=== PATIENT | female | born 1995 | race Caucasian/White ===

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

== ENCOUNTER 2017-08-31 13:47 | Emergency (ER) | payer BC, OTHER, SELFPAY | END 2017-08-31 15:14 | disposition home or self-care (01) | LOC: M ED 13:47 | DX: L02.411 Cutaneous abscess of right axilla (principal); A49.02 Methicillin resistant Staphylococcus aureus infection, unspecified site; A69.20 Lyme disease, unspecified; F17.210 Nicotine dependence, cigarettes, uncomplicated | CPT/HCPCS: 99283 ==

== ENCOUNTER → 2017-11-16 | Outpatient (CLI) | payer BC ==
[2017-11-16 17:24] LABS: PROLACTIN 25.1 NG/ML
[2017-11-16 17:47] LABS: THYROID STIMULATING HORMONE 0.637 uIU/ML (0.463-3.98)
[2017-11-16 17:47] LABS: FREE T4 1.03 NG/DL (0.78-1.33)
[2017-11-18 14:17] LABS: TESTOSTERONE FREE (DIRECT) 3.8 pg/mL (0.0-4.2)
== END ==
LOC: M WUC 11:16
DX: N92.6 Irregular menstruation, unspecified (principal); L68.0 Hirsutism
CPT/HCPCS: 84146

== ENCOUNTER → 2017-12-01 | Outpatient (REF) | payer BC | LOC: M SFHCCAPE 13:55 | DX: J02.9 Acute pharyngitis, unspecified (principal) ==

== ENCOUNTER → 2018-01-12 | Outpatient (REF) | payer BC ==
[2018-01-12 13:13] LABS: BASO # 0.1 10^3/uL (0.0-0.2); BASO % 0.7 % (0.0-1.0); EOS # 0.1 10^3/uL (0.0-0.50); EOS % 1.5 % (0.0-3.0); HEMATOCRIT 41.3 % (36.0-47.0); HEMOGLOBIN 13.4 g/dl (12.0-15.5); IMMATURE GRANULOCYTE % 0.3 % (0-3.0); LYMPH # 2.7 10^3/uL (1.5-6.5); MEAN CORPUSCULAR HEMOGLOBIN 29.7 pg (27.0-33.0); MEAN CORPUSCULAR HGB CONC 32.4 g/dl (32.0-36.5); MEAN CORPUSCULAR VOLUME 91.6 fl (80.0-96.0); MONO # 0.7 10^3/uL (0.0-0.8); MONO % 7.9 % (0.0-5.0); NEUTROPHILS # 5.6 10^3/uL (1.8-7.7); NEUTROPHILS % 60.6 % (36.0-66.0); PLATELET COUNT, AUTOMATED 302 10^3/uL (150-450); RED BLOOD COUNT 4.51 10^6/uL (4.00-5.40); RED CELL DISTRIBUTION WIDTH 12.8 % (11.5-14.5); WHITE BLOOD COUNT 9.2 10^3/uL (4.0-10.0)
[2018-01-12 14:09] LABS: ERYTHROCYTE SEDIMENTATION RATE 20 mm/hr (0-20)
[2018-01-12 14:13] LABS: ALBUMIN 4.3 GM/DL (3.2-5.2); ALBUMIN/GLOBULIN RATIO 1.48 (1.00-1.93); ALKALINE PHOSPHATASE 76 U/L (45-117); ALT/SGPT 39 U/L (12-78); ANION GAP 10 MEQ/L (8-16); AST/SGOT 19 U/L (7-37); BILIRUBIN,TOTAL 0.6 MG/DL (0.2-1.0); BLOOD UREA NITROGEN 10 MG/DL (7-18); CALCIUM LEVEL 9.6 MG/DL (8.5-10.1); CARBON DIOXIDE LEVEL 26 MEQ/L (21-32); CHLORIDE LEVEL 103 MEQ/L (98-107); CREATININE FOR GFR 0.53 MG/DL (0.55-1.30); GLUCOSE, FASTING 64 MG/DL (70-100); IMMUNOGLOBULIN G 1060 MG/DL (681-1648); IMMUNOGLOBULIN M 97 MG/DL (40-230); POTASSIUM SERUM 4.4 MEQ/L (3.5-5.1); SODIUM LEVEL 139 MEQ/L (136-145); TOTAL PROTEIN 7.2 GM/DL (6.4-8.2)
[2018-01-13 10:45] LABS: HIV 1&2 SCREEN CENTAUR NEGATIVE (NEGATIVE)
== END ==
LOC: M SFHCPLAZ 10:49
DX: B99.9 Unspecified infectious disease (principal); Z22.322 Carrier or suspected carrier of Methicillin resistant Staphylococcus aureus
CPT/HCPCS: 80053

== ENCOUNTER → 2018-02-09 | Outpatient (REF) | payer BC | LOC: M SFHCPLAZ 15:23 | DX: Z22.321 Carrier or suspected carrier of Methicillin susceptible Staphylococcus aureus (principal) ==

== ENCOUNTER → 2018-03-24 | Outpatient (REF) | payer BC ==
[2018-03-25 17:04] LABS: AMORPHOUS SEDIMENT MODERATE (NEGATIVE); APPEARANCE, URINE CLOUDY (CLEAR); BACTERIA, URINE AUTO NEGATIVE (NEGATIVE); BILIRUBIN, URINE AUTO NEGATIVE (NEGATIVE); BLOOD, URINE BLOOD 1+ (NEGATIVE); COLOR, URINE YELLOW (YELLOW); GLUCOSE, URINE (UA) AUTO NEGATIVE (NEGATIVE); KETONE, URINE AUTO NEGATIVE (NEGATIVE); LEUKOCYTE ESTERASE, URINE AUTO NEGATIVE (NEGATIVE); MUCUS, URINE SMALL (NEGATIVE); NITRITE, URINE AUTO NEGATIVE (NEGATIVE); PROTEIN, URINE AUTO NEGATIVE (NEGATIVE); RBC, URINE AUTO 0 /HPF (0-3); SPECIFIC GRAVITY URINE AUTO 1.019 (1.002-1.035); SQUAMOUS EPITHELIAL CELL UR AU 4 /HPF (0-6); UROBILINOGEN, URINE AUTO 0.2 mg/dL (0.0-2.0); WBC, URINE AUTO 2 /HPF (0-3)
== END ==
LOC: M SFHCCAPE 16:11
DX: R11.0 Nausea (principal); R19.7 Diarrhea, unspecified; R53.83 Other fatigue
CPT/HCPCS: 81001

== ENCOUNTER → 2018-03-25 | Outpatient (REF) | payer BC ==
[2018-03-25 17:14] LABS: BASO % 0.5 % (0.0-1.0); EOS # 0.1 10^3/uL (0.0-0.50); EOS % 1.6 % (0.0-3.0); HEMATOCRIT 40.6 % (36.0-47.0); HEMOGLOBIN 13.4 g/dl (12.0-15.5); IMMATURE GRANULOCYTE % 0.2 % (0-3.0); LYMPH # 2.6 10^3/uL (1.5-6.5); LYMPH % 30.1 % (24.0-44.0); MEAN CORPUSCULAR HEMOGLOBIN 30.5 pg (27.0-33.0); MEAN CORPUSCULAR VOLUME 92.3 fl (80.0-96.0); MONO # 0.5 10^3/uL (0.0-0.8); MONO % 6.1 % (0.0-5.0); NEUTROPHILS # 5.3 10^3/uL (1.8-7.7); NEUTROPHILS % 61.5 % (36.0-66.0); PLATELET COUNT, AUTOMATED 316 10^3/uL (150-450); RED CELL DISTRIBUTION WIDTH 12.7 % (11.5-14.5); WHITE BLOOD COUNT 8.7 10^3/uL (4.0-10.0)
[2018-03-25 17:22] LABS: ALBUMIN 4.4 GM/DL (3.2-5.2); ALBUMIN/GLOBULIN RATIO 1.42 (1.00-1.93); ALKALINE PHOSPHATASE 74 U/L (45-117); ALT/SGPT 40 U/L (12-78); ANION GAP 6 MEQ/L (8-16); AST/SGOT 17 U/L (7-37); BILIRUBIN,TOTAL 0.7 MG/DL (0.2-1.0); BLOOD UREA NITROGEN 14 MG/DL (7-18); CALCIUM LEVEL 9.4 MG/DL (8.5-10.1); CARBON DIOXIDE LEVEL 27 MEQ/L (21-32); CHLORIDE LEVEL 105 MEQ/L (98-107); CREATININE FOR GFR 0.68 MG/DL (0.55-1.30); GLUCOSE, FASTING 100 MG/DL (70-100); LIPASE 132 U/L (73-393); POTASSIUM SERUM 4.2 MEQ/L (3.5-5.1); SODIUM LEVEL 138 MEQ/L (136-145); TOTAL PROTEIN 7.5 GM/DL (6.4-8.2)
[2018-03-25 17:23] LABS: VITAMIN B12 LEVEL 627 PG/ML (247-911)
[2018-03-25 17:31] LABS: TOTAL 25(OH) VITAMIN D 21.2 NG/ML (30.0-100.0)
[2018-03-25 19:17] LABS: CONTROL LINE HCG INT CTR LINE PRESENT; CONTROL LINE MONO RF C INT CTR LINE PRESENT; HCG, SERUM QUALITATIVE NEGATIVE (NEGATIVE); MONO REFLEX EBV COMP NEGATIVE (NEGATIVE)
[2018-03-28 00:06] LABS: EBV VIRAL CAPSID AG IgM <36.0 U/mL (0.0-35.9); Lyme Disease IgG/IgM Antibodie <0.91 ISR (0.00-0.90); Lyme Disease IgM Ab Quantitati <0.80 index (0.00-0.79)
== END ==
LOC: M SFHCCAPE 10:50
DX: R11.0 Nausea (principal); R53.83 Other fatigue; R19.7 Diarrhea, unspecified
CPT/HCPCS: 83690

== ENCOUNTER → 2018-03-29 | Outpatient (CLI) | payer BC | LOC: M RAD 13:32 | DX: R19.7 Diarrhea, unspecified (principal); R11.2 Nausea with vomiting, unspecified | CPT/HCPCS: 76705 ==

== ENCOUNTER → 2018-04-06 | Outpatient (CLI) | payer BC ==
[~2018-04-06] MED LIST: BACT800T5 PO; GASTROGRAFIN SOLUTION 30ML (Q9963) As Ordered ONE; ISOVUE-370 76% 100ML VIAL (Q9967) As Ordered ONE
--- NOTE | 2018-04-09 09:53 | REP ---
Clinical: Abdominal pain with vomiting and diarrhea. Technique: Axial contrast enhanced images from the lung bases to the pubic symphysis using oral (per protocol) and 100 ml Isovue 370 intravenous contrast material with precontrast images of the abdomen as well as coronal and sagittal re-formations. Findings: Lung bases are clear. Visualized heart and pericardium normal. Liver, pancreas, gallbladder, bilateral adrenal glands and kidneys are normal. The spleen includes 2 cm benign appearing cyst. The enteric system is without obstruction or acute inflammatory process. Normal terminal ileum and appendix identified in the right lower quadrant. Small fat containing periumbilical hernia noted. Pelvis demonstrates normal bladder and age-appropriate uterus/adnexa. Trace pelvic free fluid is likely physiologic. Calcifications in the pelvis are most compatible with phleboliths. No ascites. No free air. No adenopathy. Abdominal aorta and vasculature normal. Surrounding musculoskeletal structures are intact. Impression: 2 cm benign splenic cyst may be followed by ultrasound if necessary. Otherwise normal CT of the abdomen and pelvis. Electronically Signed by Edison Wheatley MD 04/09/2018 09:45 A
== END ==
LOC: M RAD 12:37
PROVIDERS: ATTEND Physician Assistant
DX: R19.7 Diarrhea, unspecified (principal); R11.2 Nausea with vomiting, unspecified; R10.84 Generalized abdominal pain; D73.4 Cyst of spleen
CPT/HCPCS: 74178; Q9963; Q9967

== ENCOUNTER → 2018-06-09 | Outpatient (CLI) | payer BC ==
[~2018-06-09] MED LIST changes: +AVIATAB PO; -GASTROGRAFIN SOLUTION 30ML (Q9963) As Ordered ONE; -ISOVUE-370 76% 100ML VIAL (Q9967) As Ordered ONE
--- NOTE | 2018-06-09 18:40 | REP ---
BILIARY SCAN WITH GALLBLADDER EJECTION FRACTION: 06/09/2018. Clinical history: Abdominal pain radiating to her back, postprandial. Nausea, vomiting, diarrhea and bloating past 2 to 3 months. Comparison: Ultrasound 03/29/2018. Technique: 6.6 mCi technetium 99m mebrofenin via an IV given. Sequential 5-minute images anteriorly for 1 hour followed by 8 ounces of Ensure consumed beginning 65 minutes post tracer administration and followed with 60 minutes of dynamic imaging. Region of interest drawn around the gallbladder and the ejection fraction calculated by a semi automated method. Findings: Prompt homogeneous enhancement of the liver throughout. Activity is first seen in the gallbladder fossa and common duct at 10 minutes with progressive filling of the gallbladder, peristalsis of activity in the small bowel and good washout from the liver. Gallbladder ejection fraction is calculated at 44% for 1 hour. With this technique, the normal range is greater than 35%. Impression: 1. Normal biliary scan with prompt biliary to bowel transit, prompt filling of the gallbladder and washout from the liver. 2. Gallbladder ejection fraction 44% at 1 hour, this is normal. Above 35% is used as normal for this technique. Electronically Signed by Loi Terrazas MD 06/09/2018 09:30 P
== END ==
LOC: M RAD 07:52
PROVIDERS: ATTEND Physician Assistant
DX: R19.7 Diarrhea, unspecified (principal); R11.2 Nausea with vomiting, unspecified; R10.84 Generalized abdominal pain
CPT/HCPCS: 78227; A9537; J2805

== ENCOUNTER 2018-06-29 11:20 | Day surgery (SDC) | payer BC ==
[~2018-06-29] VITALS: Ht 160 cm; Wt 73.9 kg
[~2018-06-29 11:20] MED LIST changes: +NS 1,000 ML IV ONE
--- NOTE | 2018-06-29 13:47 | ROOR ---
Patient Name: Tresa Mooney Procedure Date: 06/29/2018 1:30 PM Date of : 1995 Age: 22 Room: [facility] Gender: Female Note Status: Finalized Procedure: Upper GI endoscopy Indications: Epigastric abdominal pain, Endoscopy to assess diarrhea in patient suspected of having disease of the small-bowel, Nausea with vomiting Providers: Robin PETERSEN MD Referring MD: JOHANNY MCKEON Requesting Provider: Medicines: Monitored Anesthesia Care Complications: No immediate complications. Procedure: Pre-Anesthesia Assessment: - The heart rate, respiratory rate, oxygen saturations, blood pressure, adequacy of pulmonary ventilation, and response to care were monitored throughout the procedure. The Endoscope was introduced through the mouth, and advanced to the second part of duodenum. The upper GI endoscopy was accomplished without difficulty. The patient tolerated the procedure well. Findings: The esophagus was normal. The stomach was normal. The examined duodenum was normal. Biopsies for histology were taken with a cold forceps in the second portion of the duodenum and in the third portion of the duodenum for evaluation of celiac disease. Impression: - Normal esophagus. - Normal stomach. - Normal examined duodenum. - Biopsies were taken with a cold forceps for evaluation of celiac disease. Recommendation: - Observe patient's clinical course. - Telephone endoscopist for pathology results in 2 weeks. Robin Petersen MD Robin PETERSEN MD 06/29/2018 1:46:37 PM This report has been signed electronically. Number of Addenda: 0 Note Initiated On: 06/29/2018 1:30 PM Estimated Blood Loss: Estimated blood loss: none.
[2018-06-29] MEDS ORDERED: LIDOCAINE 2% INJ 100 MG/5 ML SDV (FOR ANES.) As Ordered ONE (13:49)
[2018-06-29] MEDS ORDERED: PROPOFOL 200 MG/20 ML VIAL As Ordered ONE (13:49)
--- NOTE | 2018-06-29 13:59 | ROOR ---
Patient Name: Tresa Mooney Procedure Date: 06/29/2018 1:32 PM Date of : 1995 Age: 22 Room: [place] Gender: Female Note Status: Finalized Procedure: Colonoscopy Indications: Generalized abdominal pain, Clinically significant diarrhea of unexplained origin, Suspected irritable bowel syndrome Providers: Robin PETERSEN MD Referring MD: JOHANNY MCKEON Requesting Provider: Medicines: Monitored Anesthesia Care Complications: No immediate complications. Procedure: Pre-Anesthesia Assessment: - The heart rate, respiratory rate, oxygen saturations, blood pressure, adequacy of pulmonary ventilation, and response to care were monitored throughout the procedure. The Colonoscope was introduced through the anus and advanced to 15 cm into the ileum. The colonoscopy was performed without difficulty. The patient tolerated the procedure well. The quality of the bowel preparation was good. Findings: The perianal and digital rectal examinations were normal. The colon (entire examined portion) appeared normal. The terminal ileum appeared normal. Small Internal Hemorrhoids. Impression: - Small Internal Hemorrhoids. - The entire colon is normal. - The terminal ileum is normal. - No specimens collected. - (Irritable Bowel Syndrome/IBS suspected.) Recommendation: - Continue present medications. Robin Petersen MD Robin PETERSEN MD 06/29/2018 1:58:48 PM This report has been signed electronically. Number of Addenda: 0 Note Initiated On: 06/29/2018 1:32 PM Estimated Blood Loss: Estimated blood loss: none.
[2018-06-29 14:28] VITALS: BP 123/70
== END 2018-06-29 14:30 | disposition home or self-care (01) ==
LOC: M OPP 11:20
PROVIDERS: ATTEND Internal Medicine Gastroenterology
DX: R19.7 Diarrhea, unspecified (principal); R10.84 Generalized abdominal pain; R10.13 Epigastric pain; R11.2 Nausea with vomiting, unspecified

== ENCOUNTER → 2018-08-30 | Outpatient (REF) | payer BC ==
[~2018-08-30] MED LIST changes: -NS 1,000 ML IV ONE
[2018-08-30 16:50] LABS: AMORPHOUS SEDIMENT SMALL (NEGATIVE); APPEARANCE, URINE CLOUDY (CLEAR); BACTERIA, URINE AUTO NEGATIVE (NEGATIVE); BILIRUBIN, URINE AUTO NEGATIVE (NEGATIVE); BLOOD, URINE BLOOD NEGATIVE (NEGATIVE); COLOR, URINE YELLOW (YELLOW); GLUCOSE, URINE (UA) AUTO NEGATIVE (NEGATIVE); KETONE, URINE AUTO TRACE mg/dL (NEGATIVE); LEUKOCYTE ESTERASE, URINE AUTO NEGATIVE (NEGATIVE); NITRITE, URINE AUTO NEGATIVE (NEGATIVE); PROTEIN, URINE AUTO NEGATIVE (NEGATIVE); RBC, URINE AUTO 0 /HPF (0-3); SPECIFIC GRAVITY URINE AUTO 1.024 (1.002-1.035); SQUAMOUS EPITHELIAL CELL UR AU 2 /HPF (0-6); UROBILINOGEN, URINE AUTO 0.2 mg/dL (0.0-2.0); WBC, URINE AUTO 0 /HPF (0-3)
[2018-08-30 16:56] LABS: BASO # 0.1 10^3/uL (0.0-0.2); BASO % 0.7 % (0.0-1.0); EOS # 0.2 10^3/uL (0.0-0.50); EOS % 1.8 % (0.0-3.0); HEMATOCRIT 43.9 % (36.0-47.0); LYMPH # 2.8 10^3/uL (1.5-6.5); LYMPH % 30.9 % (24.0-44.0); MEAN CORPUSCULAR HEMOGLOBIN 29.7 pg (27.0-33.0); MEAN CORPUSCULAR HGB CONC 31.9 g/dl (32.0-36.5); MONO # 0.8 10^3/uL (0.0-0.8); MONO % 8.8 % (0.0-5.0); NEUTROPHILS # 5.2 10^3/uL (1.8-7.7); NEUTROPHILS % 57.6 % (36.0-66.0); PLATELET COUNT, AUTOMATED 309 10^3/uL (150-450); RED BLOOD COUNT 4.72 10^6/uL (4.00-5.40)
[2018-08-30 17:01] LABS: HCG, SERUM QUALITATIVE NEGATIVE (NEGATIVE)
[2018-08-30 17:20] LABS: ALBUMIN 4.2 GM/DL (3.2-5.2); ALT/SGPT 52 U/L (12-78); BILIRUBIN,TOTAL 0.8 MG/DL (0.2-1.0); BLOOD UREA NITROGEN 11 MG/DL (7-18); CALCIUM LEVEL 8.9 MG/DL (8.5-10.1); CARBON DIOXIDE LEVEL 27 MEQ/L (21-32); CHLORIDE LEVEL 102 MEQ/L (98-107); CREATININE FOR GFR 0.57 MG/DL (0.55-1.30); GLUCOSE, FASTING 77 MG/DL (70-100); LIPASE 118 U/L (73-393); POTASSIUM SERUM 4.5 MEQ/L (3.5-5.1); SODIUM LEVEL 136 MEQ/L (136-145); TOTAL 25(OH) VITAMIN D 18.3 NG/ML (30.0-100.0); TOTAL PROTEIN 7.7 GM/DL (6.4-8.2); VITAMIN B12 LEVEL 612 PG/ML (247-911)
== END ==
LOC: M SFHCCAPE 12:00
PROVIDERS: ATTEND Physician Assistant
DX: R53.83 Other fatigue (principal); N91.2 Amenorrhea, unspecified

== ENCOUNTER → 2019-01-12 | Outpatient (CLI) | payer BC ==
--- NOTE | 2019-01-13 02:48 | REP ---
Clinical: Pelvic pain and irregular menstrual cycles . Technique: Transabdominal pelvic ultrasound followed by transvaginal examination for better evaluation of the endometrium and adnexa with color Doppler evaluation of the ovaries. Findings: Bladder is unremarkable and measures 3.1 x 3.9 x 7.9 cm . Anteverted uterus with septated appearance measures 6.5 x 2.8 x 4.1 cm. The endometrial complex measures 3.0 mm on the right and 4.4 mm on the left. Bilateral ovaries are normal in appearance and vascularity without evidence for torsion. Right ovary measures 4.1 x 2.6 x 3.0 cm ; R I = 0.54 . Left ovary measures 3.9 x 2.4 x 3.6 cm ; R I = 0.52 . No pelvic fluid or adnexal abnormality . Impression: 1. The uterus is anteverted with possible septate appearance otherwise normal. 2. Normal bilateral ovaries. Electronically Signed by Edison Wheatley MD 01/13/2019 02:40 A
== END ==
LOC: M RAD 14:21
PROVIDERS: ATTEND Physician Assistant
DX: N92.6 Irregular menstruation, unspecified (principal); N85.4 Malposition of uterus

== ENCOUNTER → 2019-01-12 | Outpatient (REF) | payer BC ==
[2019-01-12 17:16] LABS: ALT/SGPT 29 U/L (12-78); BILIRUBIN,TOTAL 0.2 MG/DL (0.2-1.0); BLOOD UREA NITROGEN 12 MG/DL (7-18); CALCIUM LEVEL 8.9 MG/DL (8.5-10.1); CARBON DIOXIDE LEVEL 25 MEQ/L (21-32); CHLORIDE LEVEL 110 MEQ/L (98-107); CORTISOL AM 19.4 UG/DL (4.3-22.4); CREATININE FOR GFR 0.61 MG/DL (0.55-1.30); GLOMERULAR FILTRATION RATE > 60.0 (>60); GLUCOSE, FASTING 88 MG/DL (70-100); POTASSIUM SERUM 4.4 MEQ/L (3.5-5.1); SODIUM LEVEL 142 MEQ/L (136-145)
[2019-01-12 17:17] LABS: LUTEINIZING HORMONE 13.5 mIU/mL; PROLACTIN 31.4 NG/ML; TESTOSTERONE 51 NG/DL (14-76)
[2019-01-12 17:18] LABS: ESTRADIOL 45.7 PG/ML; FOLLICLE STIMULATING HORMONE 5.9 mIU/mL
[2019-01-12 17:48] LABS: BASO # 0.1 10^3/uL (0.0-0.2); BASO % 0.6 % (0.0-1.0); EOS # 0.1 10^3/uL (0.0-0.5); EOS % 1.5 % (0.0-3.0); HEMATOCRIT 39.7 % (36.0-47.0); HEMOGLOBIN 12.8 g/dl (12.0-15.5); LYMPH # 3.2 10^3/uL (1.5-5.0); LYMPH % 36.1 % (24.0-44.0); MEAN CORPUSCULAR HEMOGLOBIN 30.2 pg (27.0-33.0); MEAN CORPUSCULAR HGB CONC 32.2 g/dl (32.0-36.5); MEAN CORPUSCULAR VOLUME 93.6 fl (80.0-96.0); MONO # 0.8 10^3/uL (0.0-0.8); MONO % 8.8 % (0.0-5.0); NEUTROPHILS # 4.6 10^3/uL (1.5-8.5); NEUTROPHILS % 52.8 % (36.0-66.0); PLATELET COUNT, AUTOMATED 282 10^3/uL (150-450); RED BLOOD COUNT 4.24 10^6/uL (4.00-5.40); WHITE BLOOD COUNT 8.8 10^3/uL (4.0-10.0)
[2019-01-16 14:40] LABS: DEHYDROEPIANDROSTERONE SULFATE 418.5 ug/dL (110.0-431.7)
== END ==
LOC: M SFHCCAPE 08:01
PROVIDERS: ATTEND Physician Assistant
DX: N92.6 Irregular menstruation, unspecified (principal)

== ENCOUNTER → 2019-11-25 | Outpatient (REF) | payer OTHER ==
[~2019-11-25] MED LIST changes: +DESO1TAB5; +METF-838; +SPIR50TA4
[2020-01-02 09:34] LABS: TESTOSTERONE FREE (DIRECT) See Separate Report PG/ML; TESTOSTERONE TOTAL FOR T&D See Separate Report NG/DL
[2020-01-09 10:29] LABS: BLOOD UREA NITROGEN 8 MG/DL (7-18); CALCIUM LEVEL 9.2 MG/DL (8.5-10.1); CARBON DIOXIDE LEVEL 28 MEQ/L (21-32); CHLORIDE LEVEL 105 MEQ/L (98-107); CREATININE FOR GFR 0.79 MG/DL (0.55-1.30); GLOMERULAR FILTRATION RATE > 60.0 (>60); GLUCOSE, FASTING 91 MG/DL (70-100); POTASSIUM SERUM 4.2 MEQ/L (3.5-5.1); PROLACTIN 18.4 NG/ML; SODIUM LEVEL 137 MEQ/L (136-145)
== END ==
LOC: M LABDRAWC 16:00
PROVIDERS: ATTEND Internal Medicine Endocrinology, Diabetes & Metabolism
DX: E28.2 Polycystic ovarian syndrome (principal)

== ENCOUNTER 2020-01-02 09:34 | Emergency (ER) | payer OTHER ==
[~2020-01-02] VITALS: Ht 160 cm; Wt 70.9 kg
[~2020-01-02 09:34] MED LIST changes: -DESO1TAB5; -METF-838; -SPIR50TA4
[2020-01-02] MEDS ORDERED: DESO1TAB5 (09:40)
[2020-01-02] MEDS ORDERED: METF-838 (09:40)
[2020-01-02] MEDS ORDERED: SPIR50TA4 (09:40)
[2020-01-02 10:39] LABS: BASO # 0.1 10^3/uL (0.0-0.2); BASO % 0.5 % (0.0-1.0); EOS # 0.1 10^3/uL (0.0-0.5); HEMATOCRIT 39.5 % (36.0-47.0); HEMOGLOBIN 12.8 g/dl (12.0-15.5); LYMPH # 1.9 10^3/uL (1.5-5.0); LYMPH % 17.4 % (24.0-44.0); MEAN CORPUSCULAR HEMOGLOBIN 30.3 pg (27.0-33.0); MEAN CORPUSCULAR HGB CONC 32.4 g/dl (32.0-36.5); MEAN CORPUSCULAR VOLUME 93.6 fl (80.0-96.0); MONO # 0.7 10^3/uL (0.0-0.8); MONO % 6.1 % (0.0-5.0); NEUTROPHILS # 8.3 10^3/uL (1.5-8.5); NEUTROPHILS % 74.6 % (36.0-66.0); PLATELET COUNT, AUTOMATED 283 10^3/uL (150-450); RED BLOOD COUNT 4.22 10^6/uL (4.00-5.40); WHITE BLOOD COUNT 11.1 10^3/uL (4.0-10.0)
[2020-01-02 10:57] LABS: BILIRUBIN,DIRECT 0.1 MG/DL (0.0-0.2); BILIRUBIN,TOTAL 0.4 MG/DL (0.2-1.0); TOTAL PROTEIN 7.3 GM/DL (6.4-8.2)
--- NOTE | 2020-01-02 12:08 | REPVR ---
PROCEDURE INFORMATION: Exam: CT Abdomen And Pelvis Without Contrast Exam date and time: 01/02/2020 11:03 AM Age: 24 years old Clinical indication: Other: Left flank pain, dysuria TECHNIQUE: Imaging protocol: Computed tomography of the abdomen and pelvis without contrast. Radiation optimization: All CT scans at this facility use at least one of these dose optimization techniques: automated exposure control; mA and/or kV adjustment per patient size (includes targeted exams where dose is matched to clinical indication); or iterative reconstruction. COMPARISON: 1. CT ABD PELVIS W/O FOL BY WIT 04/06/2018 2:22 PM 2. US PELVIC NON-OB COMPLETE 01/12/2019 2:29:32 PM FINDINGS: Limitations: Without intravenous contrast, there is reduced sensitivity for detection of infectious, inflammatory, neoplastic and visceral abnormalities. Without oral contrast, evaluation of the gastrointestinal tract is limited. Liver: Normal. No mass. Gallbladder and bile ducts: Normal. No calcified stones. No ductal dilation. Pancreas: Normal. No ductal dilation. Spleen: A benign splenic cyst is 2.4 cm (previously 2.0 cm). Its density is 18 HU. Adrenals: Normal. No mass. Kidneys and ureters: Normal. No hydronephrosis. The kidneys are normal in size and contour. There is no perinephric stranding. There are no stones in the kidneys, ureters or bladder. Stomach and bowel: The stomach and duodenum are unremarkable. The small bowel is normal in caliber without wall thickening. The colon is unremarkable. There is no acute colonic distention, diverticulosis or inflammation. The ascending colon is unusually short. Appendix: A normal gas-filled retrocecal appendix abuts the liver. Intraperitoneal space: No free air or free fluid in the abdomen or pelvis. Vasculature: Unremarkable. No abdominal aortic aneurysm. Lymph nodes: Unremarkable. No enlarged lymph nodes. Bladder: Urinary bladder is normal without wall thickening, mass or stone. Reproductive: There is a tampon in the vagina. The uterus is normal and anteverted. The ovaries are normal in size and contain numerous follicles. The uterus is normal in size and anteverted. Bones/joints: Unremarkable. No acute fracture. Soft tissues: Unremarkable. IMPRESSION: No acute abnormality in the abdomen or pelvis. No cause for left flank pain and dysuria is identified. Electronically signed by: Jules Chapman On 01/02/2020 12:08:27 PM
[2020-01-02 12:49] VITALS: BP 137/83
== END 2020-01-02 12:55 | disposition home or self-care (01) ==
LOC: M ED 09:34
DX: R10.9 Unspecified abdominal pain (principal); K58.9 Irritable bowel syndrome, unspecified; Z79.84 Long term (current) use of oral hypoglycemic drugs; Z79.899 Other long term (current) drug therapy

== ENCOUNTER → 2020-02-01 | Outpatient (REF) | payer MEDICAID, OTHER ==
[~2020-02-01] MED LIST changes: +DESO1TAB5; +METF-838; +SPIR50TA4
[2020-02-01 16:12] LABS: BASO # 0.1 10^3/uL (0.0-0.2); BASO % 0.6 % (0.0-1.0); EOS # 0.1 10^3/uL (0.0-0.5); EOS % 0.7 % (0.0-3.0); HEMATOCRIT 44.4 % (36.0-47.0); HEMOGLOBIN 14.5 g/dl (12.0-15.5); LYMPH # 2.3 10^3/uL (1.5-5.0); LYMPH % 23.2 % (24.0-44.0); MEAN CORPUSCULAR HEMOGLOBIN 30.7 pg (27.0-33.0); MEAN CORPUSCULAR HGB CONC 32.7 g/dl (32.0-36.5); MEAN CORPUSCULAR VOLUME 93.9 fl (80.0-96.0); MONO # 0.6 10^3/uL (0.0-0.8); MONO % 6.4 % (0.0-5.0); NEUTROPHILS # 6.9 10^3/uL (1.5-8.5); NEUTROPHILS % 68.9 % (36.0-66.0); PLATELET COUNT, AUTOMATED 338 10^3/uL (150-450); RED BLOOD COUNT 4.73 10^6/uL (4.00-5.40)
[2020-02-01 16:39] LABS: ALBUMIN 4.2 GM/DL (3.2-5.2); ALT/SGPT 20 U/L (12-78); BILIRUBIN,TOTAL 0.8 MG/DL (0.2-1.0); BLOOD UREA NITROGEN 10 MG/DL (7-18); CALCIUM LEVEL 9.6 MG/DL (8.5-10.1); CARBON DIOXIDE LEVEL 26 MEQ/L (21-32); CHLORIDE LEVEL 107 MEQ/L (98-107); CREATININE FOR GFR 0.58 MG/DL (0.55-1.30); GLOMERULAR FILTRATION RATE > 60.0 (>60); GLUCOSE, FASTING 89 MG/DL (70-100); POTASSIUM SERUM 4.9 MEQ/L (3.5-5.1); SODIUM LEVEL 138 MEQ/L (136-145); TOTAL PROTEIN 7.9 GM/DL (6.4-8.2)
== END ==
LOC: M SFHCCLAY 11:40
PROVIDERS: ATTEND Physician Assistant
DX: R11.2 Nausea with vomiting, unspecified (principal)

== ENCOUNTER → 2020-02-02 | Outpatient (REF) | payer OTHER | LOC: M SFHCCLAY 15:52 | PROVIDERS: ATTEND Physician Assistant | DX: R19.7 Diarrhea, unspecified (principal) ==

== ENCOUNTER → 2020-02-10 | Outpatient (REF) | payer OTHER | LOC: M SFHCCLAY 08:30 | PROVIDERS: ATTEND Physician Assistant | DX: R19.7 Diarrhea, unspecified (principal) ==

== ENCOUNTER → 2020-10-25 | Outpatient (REF) | payer BC, OTHER ==
[2020-10-25 15:29] LABS: GC DNA AMPLIFICATION NEGATIVE (NEGATIVE)
== END ==
LOC: M SFHCWAGY 12:52
PROVIDERS: ATTEND Advanced Practice Midwife
DX: Z01.419 Encounter for gynecological examination (general) (routine) without abnormal findings (principal); Z11.3 Encounter for screening for infections with a predominantly sexual mode of transmission

== ENCOUNTER → 2020-11-20 | Outpatient (REF) | payer BC | LOC: M SFHCWAGY 18:18 | PROVIDERS: ATTEND Nurse Practitioner Women's Health | DX: Z12.4 Encounter for screening for malignant neoplasm of cervix (principal) ==

== ENCOUNTER → 2020-12-07 | Outpatient (CLI) | payer BC ==
--- NOTE | 2020-12-07 14:18 | REP ---
INDICATION: R06.02 SHORTNESS OF BREATH COMPARISON: None. TECHNIQUE: PA and lateral. FINDINGS: The mediastinum and cardiac silhouette are normal. The lung omer are clear and without acute consolidation, effusion, or pneumothorax. The skeletal structures are intact and normal. IMPRESSION: No acute cardiopulmonary process. <Electronically signed by Edison Wheatley > 12/07/20 [id number]
== END ==
LOC: M CLY 14:04
PROVIDERS: ATTEND Physician Assistant
DX: R06.02 Shortness of breath (principal)

== ENCOUNTER → 2020-12-11 | Outpatient (REF) | payer BC ==
[2020-12-11 16:41] LABS: BASO # 0.1 10^3/uL (0.0-0.2); BASO % 1.3 % (0.0-1.0); EOS # 0.1 10^3/uL (0.0-0.5); EOS % 1.5 % (0.0-3.0); HEMATOCRIT 40.1 % (36.0-47.0); LYMPH # 1.9 10^3/uL (1.5-5.0); LYMPH % 31.3 % (24.0-44.0); MEAN CORPUSCULAR HEMOGLOBIN 30.7 pg (27.0-33.0); MEAN CORPUSCULAR HGB CONC 32.4 g/dl (32.0-36.5); MEAN CORPUSCULAR VOLUME 94.8 fl (80.0-96.0); MONO # 0.5 10^3/uL (0.0-0.8); MONO % 7.6 % (2.0-8.0); NEUTROPHILS # 3.6 10^3/uL (1.5-8.5); PLATELET COUNT, AUTOMATED 267 10^3/uL (150-450); RED BLOOD COUNT 4.23 10^6/uL (4.00-5.40); WHITE BLOOD COUNT 6.2 10^3/uL (4.0-10.0)
[2020-12-11 17:10] LABS: BLOOD UREA NITROGEN 12 MG/DL (7-18); CALCIUM LEVEL 8.7 MG/DL (8.5-10.1); CARBON DIOXIDE LEVEL 27 MEQ/L (21-32); CHLORIDE LEVEL 107 MEQ/L (98-107); CREATININE FOR GFR 0.85 MG/DL (0.55-1.30); GLOMERULAR FILTRATION RATE > 60.0 (>60); GLUCOSE, FASTING 87 MG/DL (70-100); POTASSIUM SERUM 4.1 MEQ/L (3.5-5.1); SODIUM LEVEL 138 MEQ/L (136-145)
== END ==
LOC: M SFHCCAPE 11:33
PROVIDERS: ATTEND Physician Assistant
DX: D72.829 Elevated white blood cell count, unspecified (principal)

== ENCOUNTER → 2021-05-16 | Outpatient (CLI) | payer BC | LOC: M WUC 13:17 | PROVIDERS: ATTEND Physician Assistant | DX: S99.921A Unspecified injury of right foot, initial encounter (principal); X58.XXXA Exposure to other specified factors, initial encounter; Y92.89 Other specified places as the place of occurrence of the external cause; Y93.9 Activity, unspecified; Y99.9 Unspecified external cause status ==

== ENCOUNTER → 2021-06-10 | Outpatient (REF) | payer BC ==
[2021-06-10 16:08] LABS: BASO # 0.1 10^3/uL (0.0-0.2); BASO % 0.5 % (0.0-1.0); EOS # 0.1 10^3/uL (0.0-0.5); EOS % 1.1 % (0.0-3.0); HEMATOCRIT 38.7 % (36.0-47.0); HEMOGLOBIN 12.7 g/dl (12.0-15.5); LYMPH % 19.4 % (24.0-44.0); MEAN CORPUSCULAR HEMOGLOBIN 30.7 pg (27.0-33.0); MEAN CORPUSCULAR HGB CONC 32.8 g/dl (32.0-36.5); MEAN CORPUSCULAR VOLUME 93.5 fl (80.0-96.0); MONO # 0.6 10^3/uL (0.0-0.8); MONO % 6.1 % (2.0-8.0); NEUTROPHILS # 7.5 10^3/uL (1.5-8.5); NEUTROPHILS % 72.5 % (36.0-66.0); PLATELET COUNT, AUTOMATED 318 10^3/uL (150-450); RED BLOOD COUNT 4.14 10^6/uL (4.00-5.40); WHITE BLOOD COUNT 10.3 10^3/uL (4.0-10.0)
[2021-06-10 16:25] LABS: HCG, SERUM QUALITATIVE POSITIVE (NEGATIVE)
[2021-06-10 16:54] LABS: ALBUMIN 3.9 GM/DL (3.2-5.2); ALT/SGPT 21 U/L (12-78); BILIRUBIN,TOTAL 0.4 MG/DL (0.2-1.0); BLOOD UREA NITROGEN 8 MG/DL (7-18); CALCIUM LEVEL 8.9 MG/DL (8.5-10.1); CARBON DIOXIDE LEVEL 22 MEQ/L (21-32); CHLORIDE LEVEL 106 MEQ/L (98-107); CREATININE FOR GFR 0.53 MG/DL (0.55-1.30); GLOMERULAR FILTRATION RATE > 60.0 (>60); GLUCOSE, FASTING 80 MG/DL (70-100); HCG, SERUM QUANTITATIVE 22435 MIU/ML; POTASSIUM SERUM 4.3 MEQ/L (3.5-5.1); SODIUM LEVEL 136 MEQ/L (136-145); THYROID STIMULATING HORMONE 0.933 uIU/ML (0.358-3.740); TOTAL PROTEIN 6.9 GM/DL (6.4-8.2)
== END ==
LOC: M SFHCCAPE 07:44
PROVIDERS: ATTEND Physician Assistant
DX: N92.6 Irregular menstruation, unspecified (principal)

== ENCOUNTER → 2021-06-19 | Outpatient (CLI) | payer BC ==
[2021-06-19 19:36] LABS: BASO # 0.1 10^3/uL (0.0-0.2); BASO % 0.4 % (0.0-1.0); EOS # 0.1 10^3/uL (0.0-0.5); HEMATOCRIT 40.6 % (36.0-47.0); HEMOGLOBIN 13.4 g/dl (12.0-15.5); LYMPH # 2.4 10^3/uL (1.5-5.0); LYMPH % 19.9 % (24.0-44.0); MEAN CORPUSCULAR HEMOGLOBIN 30.7 pg (27.0-33.0); MEAN CORPUSCULAR VOLUME 92.9 fl (80.0-96.0); MONO # 0.9 10^3/uL (0.0-0.8); MONO % 7.3 % (2.0-8.0); NEUTROPHILS # 8.5 10^3/uL (1.5-8.5); NEUTROPHILS % 70.6 % (36.0-66.0); PLATELET COUNT, AUTOMATED 320 10^3/uL (150-450); RED BLOOD COUNT 4.37 10^6/uL (4.00-5.40)
[2021-06-19 20:08] LABS: HIV 1&2 SCREEN CENTAUR NEGATIVE (NEGATIVE)
[2021-06-19 20:50] LABS: GC DNA AMPLIFICATION NEGATIVE (NEGATIVE)
== END ==
LOC: M PLALAB 11:21
PROVIDERS: ATTEND Advanced Practice Midwife
DX: O99.281 Endocrine, nutritional and metabolic diseases complicating pregnancy, first trimester (principal); Z3A.00 Weeks of gestation of pregnancy not specified

== ENCOUNTER → 2021-06-28 | Outpatient (CLI) | payer BC | LOC: M PLALAB 11:51 | PROVIDERS: ATTEND Advanced Practice Midwife | DX: Z34.80 Encounter for supervision of other normal pregnancy, unspecified trimester (principal) ==

== ENCOUNTER 2021-07-08 09:36 | Emergency (ER) | payer BC ==
[~2021-07-08] VITALS: Ht 160 cm; Wt 70.0 kg
[2021-07-08 09:38] VITALS: BP 141/90
[2021-07-08] MEDS ORDERED: NS 1,000 ML IV ONE (10:15)
[2021-07-08] MEDS ORDERED: ONDANSETRON 4MG/2ML VIAL IV ONE (10:15)
[2021-07-08 10:46] LABS: BASO # 0.1 10^3/uL (0.0-0.2); BASO % 0.4 % (0.0-1.0); EOS # 0.2 10^3/uL (0.0-0.5); EOS % 1.1 % (0.0-3.0); HEMATOCRIT 39.6 % (36.0-47.0); HEMOGLOBIN 13.1 g/dl (12.0-15.5); LYMPH # 2.6 10^3/uL (1.5-5.0); LYMPH % 19.3 % (24.0-44.0); MEAN CORPUSCULAR HEMOGLOBIN 30.5 pg (27.0-33.0); MEAN CORPUSCULAR HGB CONC 33.1 g/dl (32.0-36.5); MEAN CORPUSCULAR VOLUME 92.1 fl (80.0-96.0); MONO # 0.7 10^3/uL (0.0-0.8); MONO % 5.2 % (2.0-8.0); NEUTROPHILS # 9.8 10^3/uL (1.5-8.5); NEUTROPHILS % 73.7 % (36.0-66.0); PLATELET COUNT, AUTOMATED 301 10^3/uL (150-450); WHITE BLOOD COUNT 13.3 10^3/uL (4.0-10.0)
[2021-07-08 11:32] LABS: BLOOD UREA NITROGEN 10 MG/DL (7-18); CALCIUM LEVEL 9.2 MG/DL (8.5-10.1); CARBON DIOXIDE LEVEL 27 MEQ/L (21-32); CHLORIDE LEVEL 102 MEQ/L (98-107); CREATININE FOR GFR 0.52 MG/DL (0.55-1.30); GLOMERULAR FILTRATION RATE > 60.0 (>60); GLUCOSE, FASTING 99 MG/DL (70-100); HCG, SERUM QUANTITATIVE 82451 MIU/ML; POTASSIUM SERUM 3.9 MEQ/L (3.5-5.1); SODIUM LEVEL 136 MEQ/L (136-145)
== END 2021-07-08 12:13 | disposition home or self-care (01) ==
LOC: M ED 09:36
DX: O26.851 Spotting complicating pregnancy, first trimester (principal); N93.9 Abnormal uterine and vaginal bleeding, unspecified; E28.2 Polycystic ovarian syndrome; M54.50 Low back pain, unspecified; Z3A.10 10 weeks gestation of pregnancy
CPT/HCPCS: 76801; 80048; 84702; 85025; 86850; 86900; 86901; 96361; 96374; 99282; J2405

== ENCOUNTER 2021-07-11 11:23 | Emergency (ER) | payer BC ==
[~2021-07-11] VITALS: Ht 160 cm; Wt 71.2 kg
[2021-07-11 14:17] LABS: GC DNA AMPLIFICATION NEGATIVE (NEGATIVE)
[2021-07-11 15:11] VITALS: BP 124/70
== END 2021-07-11 15:24 | disposition home or self-care (01) ==
LOC: M ED 11:23
DX: O26.859 Spotting complicating pregnancy, unspecified trimester (principal); N93.9 Abnormal uterine and vaginal bleeding, unspecified; E28.2 Polycystic ovarian syndrome; Z3A.12 12 weeks gestation of pregnancy

== ENCOUNTER → 2021-07-16 | Outpatient (REF) | payer BC ==
[2021-07-16 16:22] LABS: BASO # 0.1 10^3/uL (0.0-0.2); BASO % 0.5 % (0.0-1.0); EOS # 0.1 10^3/uL (0.0-0.5); EOS % 1.3 % (0.0-3.0); HEMATOCRIT 36.4 % (36.0-47.0); LYMPH # 1.6 10^3/uL (1.5-5.0); LYMPH % 16.3 % (24.0-44.0); MEAN CORPUSCULAR HEMOGLOBIN 30.4 pg (27.0-33.0); MEAN CORPUSCULAR VOLUME 92.2 fl (80.0-96.0); MONO # 1.1 10^3/uL (0.0-0.8); NEUTROPHILS % 70.6 % (36.0-66.0); PLATELET COUNT, AUTOMATED 266 10^3/uL (150-450); RED BLOOD COUNT 3.95 10^6/uL (4.00-5.40)
[2021-07-16 17:14] LABS: BLOOD UREA NITROGEN 7 MG/DL (7-18); CALCIUM LEVEL 8.8 MG/DL (8.5-10.1); CARBON DIOXIDE LEVEL 24 MEQ/L (21-32); CHLORIDE LEVEL 105 MEQ/L (98-107); GLOMERULAR FILTRATION RATE > 60.0 (>60); GLUCOSE, FASTING 79 MG/DL (70-100); HCG, SERUM QUANTITATIVE 70724 MIU/ML; POTASSIUM SERUM 3.9 MEQ/L (3.5-5.1); SODIUM LEVEL 137 MEQ/L (136-145)
== END ==
LOC: M SFHCCAPE 11:08
PROVIDERS: ATTEND Physician Assistant
DX: O41.8X10 Other specified disorders of amniotic fluid and membranes, first trimester, not applicable or unspecified (principal); O46.8X1 Other antepartum hemorrhage, first trimester; J22 Unspecified acute lower respiratory infection; Z3A.00 Weeks of gestation of pregnancy not specified; O99.511 Diseases of the respiratory system complicating pregnancy, first trimester

== ENCOUNTER → 2021-09-06 | Outpatient (CLI) | payer BC | LOC: M WHC 11:34 | PROVIDERS: ATTEND Advanced Practice Midwife | DX: Z34.02 Encounter for supervision of normal first pregnancy, second trimester (principal); Z3A.19 19 weeks gestation of pregnancy ==

== ENCOUNTER → 2021-09-27 | Outpatient (CLI) | payer BC | LOC: M WHC 11:41 | PROVIDERS: ATTEND Obstetrics & Gynecology | DX: Z36.89 Encounter for other specified antenatal screening (principal); Z3A.22 22 weeks gestation of pregnancy ==

== ENCOUNTER → 2021-11-11 | Outpatient (CLI) | payer BC ==
[2021-11-11 13:55] LABS: HEMATOCRIT 32.6 % (36.0-47.0); HEMOGLOBIN 10.2 g/dl (12.0-15.5); MEAN CORPUSCULAR HEMOGLOBIN 28.7 pg (27.0-33.0); MEAN CORPUSCULAR HGB CONC 31.3 g/dl (32.0-36.5); MEAN CORPUSCULAR VOLUME 91.8 fl (80.0-96.0); PLATELET COUNT, AUTOMATED 333 10^3/uL (150-450); RED BLOOD COUNT 3.55 10^6/uL (4.00-5.40); WHITE BLOOD COUNT 18.2 10^3/uL (4.0-10.0)
== END ==
LOC: M PLALAB 09:37
PROVIDERS: ATTEND Advanced Practice Midwife
DX: O99.342 Other mental disorders complicating pregnancy, second trimester (principal); Z3A.00 Weeks of gestation of pregnancy not specified

== ENCOUNTER → 2021-11-18 | Outpatient (CLI) | payer BC | LOC: M LAB 07:02 | PROVIDERS: ATTEND Advanced Practice Midwife | DX: O99.810 Abnormal glucose complicating pregnancy (principal) ==

== ENCOUNTER → 2021-12-02 | Outpatient (CLI) | payer BC | LOC: M WHC 09:07 | PROVIDERS: ATTEND Obstetrics & Gynecology | DX: O26.843 Uterine size-date discrepancy, third trimester (principal) ==

== ENCOUNTER → 2021-12-27 | Outpatient (REF) | payer BC ==
[~2021-12-27] MED LIST changes: +ACET325C5 PO; +IRON27TA2 PO; +MULTTAB20 PO; +PEPC40TA12 PO; +UNIS25TA3 PO
== END ==
LOC: M PLALAB 14:29
PROVIDERS: ATTEND Obstetrics & Gynecology
DX: Z34.93 Encounter for supervision of normal pregnancy, unspecified, third trimester (principal); Z3A.00 Weeks of gestation of pregnancy not specified

== ENCOUNTER 2021-12-31 14:57 | Outpatient (CLI) | payer BC ==
[~2021-12-31] VITALS: Ht 160 cm; Wt 95.5 kg
[~2021-12-31 14:57] MED LIST changes: -ACET325C5 PO; -IRON27TA2 PO; -MULTTAB20 PO; -PEPC40TA12 PO; -UNIS25TA3 PO
[2021-12-31] MEDS ORDERED: MULTTAB20 PO (15:17)
[2021-12-31] MEDS ORDERED: PEPC40TA12 PO (15:18)
[2021-12-31] MEDS ORDERED: ACET325C5 PO (15:18)
[2021-12-31] MEDS ORDERED: UNIS25TA3 PO (15:19)
[2021-12-31] MEDS ORDERED: IRON27TA2 PO (15:19)
[2021-12-31 15:20] VITALS: BP 172/102
[2021-12-31] MEDS ORDERED: HOME MED LIST COMPLETE! XX SCH (15:20)
[2021-12-31 15:36] VITALS: BP 137/82
[2021-12-31 15:44] LABS: HEMATOCRIT 36.6 % (36.0-47.0); HEMOGLOBIN 11.8 g/dl (12.0-15.5); MEAN CORPUSCULAR HEMOGLOBIN 28.9 pg (27.0-33.0); MEAN CORPUSCULAR HGB CONC 32.2 g/dl (32.0-36.5); MEAN CORPUSCULAR VOLUME 89.5 fl (80.0-96.0); PLATELET COUNT, AUTOMATED 299 10^3/uL (150-450); RED BLOOD COUNT 4.09 10^6/uL (4.00-5.40); WHITE BLOOD COUNT 16.6 10^3/uL (4.0-10.0)
[2021-12-31 15:52] VITALS: BP 128/76
[2021-12-31 16:24] LABS: CREATININE,RANDOM URINE 58.2 MG/DL; TOTAL PROTEIN,RANDOM URINE 12.9 MG/DL (0.0-12.0)
[2021-12-31 16:27] LABS: ALBUMIN 2.8 GM/DL (3.2-5.2); ALT/SGPT 17 U/L (12-78); BILIRUBIN,TOTAL 0.2 MG/DL (0.2-1.0); BLOOD UREA NITROGEN 6 MG/DL (7-18); CALCIUM LEVEL 9.5 MG/DL (8.5-10.1); CARBON DIOXIDE LEVEL 23 MEQ/L (21-32); CHLORIDE LEVEL 105 MEQ/L (98-107); CREATININE FOR GFR 0.33 MG/DL (0.55-1.30); GLOMERULAR FILTRATION RATE > 60.0 (>60); GLUCOSE, FASTING 89 MG/DL (70-100); POTASSIUM SERUM 3.9 MEQ/L (3.5-5.1); SODIUM LEVEL 136 MEQ/L (136-145); TOTAL PROTEIN 6.4 GM/DL (6.4-8.2)
[2021-12-31] MEDS ORDERED: diphenhydrAMINE 25MG CAP PO ONE (16:40)
[2021-12-31] MEDS ORDERED: METOCLOPRAMIDE 10MG TAB PO ONE (16:40)
[2021-12-31 16:57] VITALS: BP 126/81
== END 2021-12-31 18:09 | disposition home or self-care (01) ==
LOC: M LDO 14:57
PROVIDERS: ATTEND Obstetrics & Gynecology
DX: O16.3 Unspecified maternal hypertension, third trimester (principal); O26.893 Other specified pregnancy related conditions, third trimester; R51.0 Headache with orthostatic component, not elsewhere classified; Z3A.36 36 weeks gestation of pregnancy
CPT/HCPCS: 36415; 59025; 80053; 82570; 84156; 85027; G0463

== ENCOUNTER 2022-01-06 09:35 | Inpatient (IN) | payer BC ==
[2022-01-06] VITALS (7 sets, daily range): BP systolic 125–154; BP diastolic 71–84
[~2022-01-06] VITALS: Ht 160 cm; Wt 96.8 kg
[~2022-01-06 09:35] MED LIST changes: -FAMO20TA PO; -METF-838 PO
[2022-01-06] MEDS ORDERED: HOME MED LIST COMPLETE! XX SCH (09:55)
[2022-01-06] MEDS ORDERED: LIDOCAINE 1% MDV 20ML VIAL INFIL PRN (10:10)
[2022-01-06] MEDS ORDERED: CARBOPROST TROMETHAMINE 250 MCG/ML AMP IM PRN (10:10)
[2022-01-06] MEDS ORDERED: TRANEXAMIC ACID INJection 1,000 MG in NS 100 ML IV PRN (10:10)
[2022-01-06] MEDS ORDERED: OXYTOCIN DRIP 30 UNITS in IV 1 EA IV PRN ×4 (10:10)
[2022-01-06] MEDS ORDERED: OXYTOCIN INJ 10 UNITS/ML VIAL (J2590) IM PRN (10:10)
[2022-01-06] MEDS ORDERED: FAMO20TA PO (10:17)
[2022-01-06] MEDS: miSOPROStol 50MCG 1/2 TABLET PO SCH ×3 (10:57→20:37)
[2022-01-06] MEDS ORDERED: METF-838 PO (12:23)
[2022-01-07] VITALS (39 sets, daily range): BP systolic 106–166; BP diastolic 55–88
[2022-01-07] MEDS: miSOPROStol 50MCG 1/2 TABLET PO SCH (02:23)
[2022-01-07] MEDS ORDERED: ONDANSETRON 4MG 2ML VIAL IV ONE (09:00)
[2022-01-07] MEDS ORDERED: OXYTOCIN DRIP 30 UNITS in IV 1 EA IV SCH (09:30)
[2022-01-07] MEDS: LR 1,000 ML IV SCH ×3 (10:02→20:42)
[2022-01-07] MEDS ORDERED: PROMETHAZINE 25MG/ML 1ML VIAL IV ONE (17:10)
[2022-01-07] MEDS ORDERED: BUTORPHANOL 2 MG/ML INJ (J0595) IV ONE (17:10)
[2022-01-07] MEDS ORDERED: FENTANYL 2MCG/ML ROPIVACAINE 0.2% IN 0.9% NACL 100ML IVBAG As Ordered ONE (20:10)
[2022-01-07] MEDS ORDERED: FAMOTIDINE 20 MG TAB PO SCH (21:00)
[2022-01-07] MEDS ORDERED: REFRIGERATOR IV KEYS XX PRN (21:35)
[2022-01-07] MEDS ORDERED: FENTANYL/ROPIVACAINE/NACL BAG 100 ML EPIDURAL SCH (21:35)
[2022-01-07] MEDS ORDERED: NALOXONE INJ 0.4MG/1ML VIAL (J2310 PER 1MG) IV PRN (21:35)
[2022-01-07] MEDS ORDERED: ONDANSETRON 4MG 2ML VIAL IV PRN (21:35)
[2022-01-07] MEDS ORDERED: EPIDURAL/PCA KEYS XX PRN (21:35)
[2022-01-07] MEDS ORDERED: EPIDURAL COMMENT XX SCH (21:35)
[2022-01-07] MEDS ORDERED: diphenhydrAMINE 50MG/ML VIAL (J1200) IV PRN (21:35)
[2022-01-07] MEDS ORDERED: ePHEDrine SULFATE 25 MG/5 ML(5MG/ML) SYRINGE IV PRN (21:35)
[2022-01-07] MEDS ORDERED: LACTATED RINGER'S 1000 ML IV PRN (21:35)
[2022-01-07] MEDS ORDERED: ACETAMINOPHEN 500 MG TAB PO PRN (21:40)
[2022-01-08] VITALS (8 sets, daily range): BP systolic 114–136; BP diastolic 60–80
[2022-01-08] MEDS ORDERED: DOCUSATE SODIUM 100MG CAPSULE PO PRN (02:35)
[2022-01-08] MEDS ORDERED: ACETAMINOPHEN TAB 650MG DOSE (2X325MG) PO PRN (02:35)
[2022-01-08] MEDS ORDERED: METHYLERGONOVINE MALEATE 0.2 MG TAB PO PRN (02:35)
[2022-01-08] MEDS ORDERED: RHOGAM 300 MCG (1500 IU) INJ (J2790) IM SCH (02:35)
[2022-01-08] MEDS ORDERED: ACETAMINOPHEN 500 MG TAB PO PRN (02:35)
[2022-01-08] MEDS ORDERED: CALCIUM CARBONATE 500 MG CHEW U/D PO PRN (03:25)
[2022-01-08] MEDS: PRENATAL VITAMINS CHEWABLE TABLET PO SCH (08:48)
[2022-01-08] MEDS: DIBUCAINE 1% OINTMENT 30GM TOP PRN (09:06)
[2022-01-08] MEDS: IBUPROFEN 600MG TAB PO PRN ×2 (09:07→16:00)
[2022-01-09] MEDS: IBUPROFEN 600MG TAB PO PRN ×2 (00:08→07:20)
[2022-01-09 05:13] VITALS: BP 140/67
[2022-01-09] MEDS: PRENATAL VITAMINS CHEWABLE TABLET PO SCH (09:53)
[2022-01-09 19:16] VITALS: BP 133/80
[2022-01-09] MEDS: IBUPROFEN 800 MG TAB PO PRN (20:21)
[2022-01-09 22:00] VITALS: BP 130/65
[2022-01-10 06:28] VITALS: BP 128/76
[2022-01-10 08:00] VITALS: BP 135/80
[2022-01-10] MEDS: DIBUCAINE 1% OINTMENT 30GM TOP PRN (08:40)
[2022-01-10] MEDS: PRENATAL VITAMINS CHEWABLE TABLET PO SCH (08:40)
[2022-01-10] MEDS: IBUPROFEN 800 MG TAB PO PRN (08:40)
[2022-01-10] MEDS ORDERED: MEASLES,MUMPS,RUBELLA VACCINE INJ (MMR-II) (90707) SC.IMMUN ONE (09:00)
== END 2022-01-10 16:42 | disposition home or self-care (01) | DRG 560 ==
LOC: M LDI 09:35 → M PED 01-08 05:15
PROVIDERS: ADMIT Advanced Practice Midwife; ATTEND Advanced Practice Midwife
PROC: 3E033VJ Introduction of Other Hormone into Peripheral Vein, Percutaneous Approach (ICD-10-PCS; 2022-01-06)
PROC: 3E0DXGC Introduction of Other Therapeutic Substance into Mouth and Pharynx, External Approach (ICD-10-PCS; 2022-01-06)
PROC: 10E0XZZ Delivery of Products of Conception, External Approach (ICD-10-PCS; principal; 2022-01-08)
PROC: 0KQM0ZZ Repair Perineum Muscle, Open Approach (ICD-10-PCS; 2022-01-08)
PROC: 10907ZC Drainage of Amniotic Fluid, Therapeutic from Products of Conception, Via Natural or Artificial Opening (ICD-10-PCS; 2022-01-08)
DX: O13.4 Gestational [pregnancy-induced] hypertension without significant proteinuria, complicating childbirth (principal); O70.1 Second degree perineal laceration during delivery; Z37.0 Single live birth; Z3A.37 37 weeks gestation of pregnancy

== ENCOUNTER → 2022-01-06 | Outpatient (CLI) | payer BC ==
[~2022-01-06] MED LIST changes: +ACET325C5 PO; +FAMO20TA PO; +IRON27TA2 PO; +METF-838 PO; +MULTTAB20 PO; +PEPC40TA12 PO; +UNIS25TA3 PO
[2022-01-06 10:44] LABS: HEMATOCRIT 39.8 % (36.0-47.0); HEMOGLOBIN 12.4 g/dl (12.0-15.5); MEAN CORPUSCULAR HEMOGLOBIN 28.7 pg (27.0-33.0); MEAN CORPUSCULAR HGB CONC 31.2 g/dl (32.0-36.5); MEAN CORPUSCULAR VOLUME 92.1 fl (80.0-96.0); PLATELET COUNT, AUTOMATED 308 10^3/uL (150-450); RED BLOOD COUNT 4.32 10^6/uL (4.00-5.40); WHITE BLOOD COUNT 14.3 10^3/uL (4.0-10.0)
[2022-01-06 11:08] LABS: ALT/SGPT 17 U/L (12-78); BILIRUBIN,TOTAL 0.3 MG/DL (0.2-1.0); CREATININE FOR GFR 0.44 MG/DL (0.55-1.30); GLOMERULAR FILTRATION RATE > 60.0 (>60); LDH LACTATE DEHYDROGENASE 167 U/L (84-246); URIC ACID 3.7 MG/DL (2.6-6.0)
[2022-01-06 12:05] LABS: CREATININE,RANDOM URINE 45.3 MG/DL; TOTAL PROTEIN,RANDOM URINE 10.4 MG/DL (0.0-12.0)
== END ==
LOC: M PLALAB 07:36
PROVIDERS: ATTEND Advanced Practice Midwife
DX: O16.3 Unspecified maternal hypertension, third trimester (principal)

== ENCOUNTER 2022-06-05 15:00 | Emergency (ER) | payer BC ==
[~2022-06-05] VITALS: Ht 160 cm; Wt 82.9 kg
[~2022-06-05 15:00] MED LIST changes: +FAMO20TA PO; +METF-838 PO
[2022-06-05 16:10] LABS: BASO # 0.1 10^3/uL (0.0-0.2); BASO % 0.6 % (0.0-1.0); EOS # 0.1 10^3/uL (0.0-0.5); EOS % 1.2 % (0.0-3.0); HEMATOCRIT 40.5 % (36.0-47.0); HEMOGLOBIN 13.3 g/dl (12.0-15.5); LYMPH # 2.8 10^3/uL (1.5-5.0); MEAN CORPUSCULAR HEMOGLOBIN 29.6 pg (27.0-33.0); MEAN CORPUSCULAR HGB CONC 32.8 g/dl (32.0-36.5); MONO # 0.7 10^3/uL (0.0-0.8); MONO % 7.9 % (2.0-8.0); NEUTROPHILS # 5.3 10^3/uL (1.5-8.5); PLATELET COUNT, AUTOMATED 291 10^3/uL (150-450)
[2022-06-05 16:24] LABS: INR 0.91; PROTHROMBIN TIME 12.4 SECONDS (12.5-14.5)
[2022-06-05] MEDS ORDERED: NS 1,000 ML IV ONE (16:35)
[2022-06-05 16:38] LABS: PARTIAL THROMBOPLASTIN TIME 25.2 SECONDS (24.8-34.2)
[2022-06-05 16:46] LABS: BILIRUBIN,DIRECT 0.1 MG/DL (<0.4); BILIRUBIN,TOTAL 0.5 MG/DL (0.3-1.2); TOTAL PROTEIN 6.8 G/DL (5.7-8.2)
[2022-06-05] MEDS ORDERED: ISOVUE-370 76% 100ML VIAL As Ordered ONE (16:52)
[2022-06-05 17:49] LABS: RSV AMPLIFICATION NEGATIVE (NEGATIVE)
[2022-06-05] MEDS ORDERED: COLA100C5 PO (18:12)
[2022-06-05] MEDS ORDERED: ANUS2.5C2 TOP (18:12)
[2022-06-05 18:26] VITALS: BP 129/83
== END 2022-06-05 18:29 | disposition home or self-care (01) ==
LOC: M ED 15:00
DX: K92.2 Gastrointestinal hemorrhage, unspecified (principal); K64.9 Unspecified hemorrhoids; I88.0 Nonspecific mesenteric lymphadenitis; D73.4 Cyst of spleen; I10 Essential (primary) hypertension; E28.2 Polycystic ovarian syndrome; K58.9 Irritable bowel syndrome, unspecified; F12.10 Cannabis abuse, uncomplicated; Z86.16 Personal history of COVID-19; Z79.4 Long term (current) use of insulin; Z79.810 Long term (current) use of selective estrogen receptor modulators (SERMs); Z79.899 Other long term (current) drug therapy

== ENCOUNTER → 2022-07-03 | Outpatient (REF) | payer BC ==
[~2022-07-03] MED LIST changes: +ANUS2.5C2 TOP; +COLA100C5 PO
== END ==
LOC: M SFHCCAPE 08:55
PROVIDERS: ATTEND Physician Assistant
DX: J02.9 Acute pharyngitis, unspecified (principal)

== ENCOUNTER 2022-08-18 11:00 | Day surgery (SDC) | payer BC, MEDICAID ==
[~2022-08-18] VITALS: Ht 160 cm; Wt 82.1 kg
[~2022-08-18 11:00] MED LIST changes: +ADAP0.05 TOP; +CLIN1GEL3 TOP; +LIDOCAINE 2% 100MG/5ML SDV (FOR ANES.) As Ordered ONE; +NS 1,000 ML IV ONE; +fentaNYL 100 MCG/2 ML INJECTION As Ordered ONE; +propofoL 500 MG/50 ML VIAL As Ordered ONE
[2022-08-18 12:35] VITALS: BP 129/81
== END 2022-08-18 12:49 | disposition home or self-care (01) ==
LOC: M OPP 11:00
PROVIDERS: ATTEND Internal Medicine Gastroenterology
DX: K58.2 Mixed irritable bowel syndrome (principal); K92.1 Melena; K64.8 Other hemorrhoids; R11.0 Nausea; R10.9 Unspecified abdominal pain; Z79.2 Long term (current) use of antibiotics; Z79.84 Long term (current) use of oral hypoglycemic drugs; Z79.899 Other long term (current) drug therapy
CPT/HCPCS: 43239; 45380; 88305; J3010

== ENCOUNTER → 2022-10-09 | Outpatient (REF) | payer BC ==
[~2022-10-09] MED LIST changes: -LIDOCAINE 2% 100MG/5ML SDV (FOR ANES.) As Ordered ONE; -NS 1,000 ML IV ONE; -fentaNYL 100 MCG/2 ML INJECTION As Ordered ONE; -propofoL 500 MG/50 ML VIAL As Ordered ONE
== END ==
LOC: M PLALAB 14:16
PROVIDERS: ATTEND Advanced Practice Midwife
DX: Z12.4 Encounter for screening for malignant neoplasm of cervix (principal)

== ENCOUNTER → 2023-03-30 | Outpatient (REF) | payer BC, MEDICAID ==
[~2023-03-30] MED LIST changes: +ADAP0.02 TOP; -ADAP0.05 TOP
== END ==
LOC: M SFHCCAPE 13:36
PROVIDERS: ATTEND Physician Assistant Medical
DX: J20.9 Acute bronchitis, unspecified (principal)

== ENCOUNTER → 2023-04-06 | Outpatient (REF) | payer BC, MEDICAID ==
[2023-04-06 19:54] LABS: HEMOGLOBIN A1c 5.1 % (4.0-6.0)
[2023-04-06 20:00] LABS: ALBUMIN 4.2 G/DL (3.2-5.2); ALKALINE PHOSPHATASE 84 U/L (46-116); ALT/SGPT 32 U/L (7.0-40); AST/SGOT 19 U/L (<34); BILIRUBIN,TOTAL 0.4 MG/DL (0.3-1.2); BLOOD UREA NITROGEN 11 MG/DL (9-23); CALCIUM LEVEL 9.1 MG/DL (8.5-10.1); CARBON DIOXIDE LEVEL 25 MMOL/L (20-31); CHLORIDE LEVEL 106 MMOL/L (98-107); CREATININE FOR GFR 0.58 MG/DL (0.55-1.30); GLOMERULAR FILTRATION RATE > 60.0 (>60); GLUCOSE, FASTING 93 MG/DL (60-100); POTASSIUM SERUM 4.8 MMOL/L (3.5-5.1); SODIUM LEVEL 137 MMOL/L (136-145); TOTAL PROTEIN 7.1 G/DL (5.7-8.2)
[2023-04-06 20:04] LABS: TESTOSTERONE 43 NG/DL (14-76)
== END ==
LOC: M LABDRWCV 18:08
PROVIDERS: ATTEND Nurse Practitioner Family
DX: E28.2 Polycystic ovarian syndrome (principal)

== ENCOUNTER → 2023-05-27 | Outpatient (CLI) | payer BC, MEDICAID | LOC: M CLY 11:03 | PROVIDERS: ATTEND Physician Assistant | DX: R05.3 Chronic cough (principal); Z53.9 Procedure and treatment not carried out, unspecified reason ==

== ENCOUNTER → 2023-05-27 | Outpatient (CLI) | payer BC, MEDICAID | LOC: M CLY 11:23 | PROVIDERS: ATTEND Physician Assistant | DX: R05.3 Chronic cough (principal) ==

== ENCOUNTER → 2023-06-02 | Outpatient (REF) | payer BC, MEDICAID ==
[2023-06-02 18:14] LABS: BASO % 0.4 % (0.0-1.0); EOS # 0.3 10^3/uL (0.0-0.5); EOS % 3.4 % (0.0-3.0); HEMATOCRIT 35.9 % (36.0-47.0); HEMOGLOBIN 11.6 g/dl (12.0-15.5); LYMPH # 3.3 10^3/uL (1.5-5.0); LYMPH % 33.6 % (24.0-44.0); MEAN CORPUSCULAR HEMOGLOBIN 29.7 pg (27.0-33.0); MEAN CORPUSCULAR HGB CONC 32.3 g/dl (32.0-36.5); MEAN CORPUSCULAR VOLUME 91.8 fl (80.0-96.0); MONO # 0.7 10^3/uL (0.0-0.8); MONO % 6.7 % (2.0-8.0); NEUTROPHILS # 5.5 10^3/uL (1.5-8.5); NEUTROPHILS % 55.8 % (36.0-66.0); PLATELET COUNT, AUTOMATED 261 10^3/uL (150-450); RED BLOOD COUNT 3.91 10^6/uL (4.00-5.40); WHITE BLOOD COUNT 9.8 10^3/uL (4.0-10.0)
[2023-06-02 18:37] LABS: LIPASE 27 U/L (12-53)
[2023-06-02 18:39] LABS: BLOOD UREA NITROGEN 11 MG/DL (9-23); CALCIUM LEVEL 8.3 MG/DL (8.5-10.1); CARBON DIOXIDE LEVEL 25 MMOL/L (20-31); CHLORIDE LEVEL 105 MMOL/L (98-107); CREATININE FOR GFR 0.57 MG/DL (0.55-1.30); GLOMERULAR FILTRATION RATE > 60.0 (>60); GLUCOSE, FASTING 95 MG/DL (60-100); POTASSIUM SERUM 4.1 MMOL/L (3.5-5.1); SODIUM LEVEL 137 MMOL/L (136-145)
== END ==
LOC: M SFHCCAPE 14:24
PROVIDERS: ATTEND Physician Assistant Medical
DX: N20.0 Calculus of kidney (principal); D72.829 Elevated white blood cell count, unspecified; R10.9 Unspecified abdominal pain

== ENCOUNTER → 2023-06-04 | Outpatient (REF) | payer BC, MEDICAID ==
[2023-06-04 17:30] LABS: APPEARANCE, URINE CLOUDY (CLEAR); BACTERIA, URINE AUTO NEGATIVE (NEGATIVE); BILIRUBIN, URINE AUTO NEGATIVE (NEGATIVE); BLOOD, URINE BLOOD 3+ (NEGATIVE); COLOR, URINE YELLOW (YELLOW); GLUCOSE, URINE (UA) AUTO NEGATIVE (NEGATIVE); KETONE, URINE AUTO NEGATIVE (NEGATIVE); LEUKOCYTE ESTERASE, URINE AUTO NEGATIVE (NEGATIVE); MUCUS, URINE SMALL (NEGATIVE); NITRITE, URINE AUTO NEGATIVE (NEGATIVE); PROTEIN, URINE AUTO NEGATIVE (NEGATIVE); RBC, URINE AUTO TNTC /HPF (0-3); SPECIFIC GRAVITY URINE AUTO 1.018 (1.002-1.035); SQUAMOUS EPITHELIAL CELL UR AU 33 /HPF (0-6); UROBILINOGEN, URINE AUTO 0.2 mg/dL (0.0-2.0); WBC, URINE AUTO 5 /HPF (0-3)
== END ==
LOC: M SFHCCAPE 09:15
PROVIDERS: ATTEND Physician Assistant Medical
DX: N20.0 Calculus of kidney (principal); N13.2 Hydronephrosis with renal and ureteral calculous obstruction

== ENCOUNTER → 2023-07-10 | Outpatient (CLI) | payer BC, MEDICAID ==
[2023-07-10 13:14] LABS: HEMATOCRIT 38.7 % (36.0-47.0); HEMOGLOBIN 12.7 g/dl (12.0-15.5); MEAN CORPUSCULAR HEMOGLOBIN 29.7 pg (27.0-33.0); MEAN CORPUSCULAR HGB CONC 32.8 g/dl (32.0-36.5); MEAN CORPUSCULAR VOLUME 90.6 fl (80.0-96.0); PLATELET COUNT, AUTOMATED 310 10^3/uL (150-450); RED BLOOD COUNT 4.27 10^6/uL (4.00-5.40); WHITE BLOOD COUNT 13.9 10^3/uL (4.0-10.0)
[2023-07-10 13:36] LABS: TOTAL PROTEIN,RANDOM URINE 14.3 MG/DL (0.0-14.0)
[2023-07-10 13:40] LABS: URIC ACID 3.1 MG/DL (3.1-7.8)
[2023-07-10 13:42] LABS: LDH LACTATE DEHYDROGENASE 151 U/L (120-246)
[2023-07-10 13:43] LABS: ALT/SGPT 37 U/L (7.0-40); AST/SGOT 16 U/L (<34); BILIRUBIN,TOTAL 0.5 MG/DL (0.3-1.2); CREATININE FOR GFR 0.45 MG/DL (0.55-1.30); GLOMERULAR FILTRATION RATE > 60.0 (>60)
[2023-07-10 14:10] LABS: HIV 1&2 SCREEN NEGATIVE (NEGATIVE)
[2023-07-10 14:19] LABS: HEPATITIS C VIRUS ABY INDEX < 0.02 INDEX (<0.8)
[2023-07-10 14:50] LABS: GC DNA AMPLIFICATION NEGATIVE (NEGATIVE)
== END ==
LOC: M PLALAB 10:28
PROVIDERS: ATTEND Advanced Practice Midwife
DX: O09.299 Supervision of pregnancy with other poor reproductive or obstetric history, unspecified trimester (principal)

== ENCOUNTER → 2023-08-06 | Outpatient (CLI) | payer BC, MEDICAID | LOC: M PLALAB 08:49 | PROVIDERS: ATTEND Advanced Practice Midwife | DX: O99.341 Other mental disorders complicating pregnancy, first trimester (principal) ==

== ENCOUNTER → 2023-08-06 | Outpatient (REF) | payer BC, MEDICAID | LOC: M PLALAB 09:01 | PROVIDERS: ATTEND Advanced Practice Midwife | DX: O99.341 Other mental disorders complicating pregnancy, first trimester (principal) ==

== ENCOUNTER → 2023-09-04 | Outpatient (CLI) | payer BC, MEDICAID | LOC: M PLALAB 09:37 | PROVIDERS: ATTEND Obstetrics & Gynecology | DX: Z13.79 Encounter for other screening for genetic and chromosomal anomalies (principal) ==

== ENCOUNTER → 2023-10-07 | Outpatient (CLI) | payer BC, MEDICAID | LOC: M RAD 14:52 | PROVIDERS: ATTEND Obstetrics & Gynecology | DX: Z34.92 Encounter for supervision of normal pregnancy, unspecified, second trimester (principal); Z3A.20 20 weeks gestation of pregnancy ==

== ENCOUNTER 2023-11-04 08:25 | Outpatient (CLI) | payer BC, MEDICAID ==
[2023-11-04] VITALS (9 sets, daily range): BP systolic 110–146; BP diastolic 56–92; TEMP 98.3
[~2023-11-04] VITALS: Ht 160 cm; Wt 95.0 kg
[2023-11-04] MEDS ORDERED: ACET-897 PO (08:41)
[2023-11-04] MEDS ORDERED: HOME MED LIST COMPLETE! XX SCH (08:45)
[2023-11-04 09:47] LABS: HEMATOCRIT 31.1 % (36.0-47.0); HEMOGLOBIN 9.5 g/dl (12.0-15.5); MEAN CORPUSCULAR HEMOGLOBIN 25.6 pg (27.0-33.0); MEAN CORPUSCULAR HGB CONC 30.5 g/dl (32.0-36.5); MEAN CORPUSCULAR VOLUME 83.8 fl (80.0-96.0); PLATELET COUNT, AUTOMATED 299 10^3/uL (150-450); RED BLOOD COUNT 3.71 10^6/uL (4.00-5.40); WHITE BLOOD COUNT 14.5 10^3/uL (4.0-10.0)
[2023-11-04 10:10] LABS: TOTAL PROTEIN,RANDOM URINE 12.9 MG/DL (0.0-14.0)
[2023-11-04 10:12] LABS: URIC ACID 3.6 MG/DL (3.1-7.8)
[2023-11-04] MEDS: FIORICET TAB PO ONE (10:13)
[2023-11-04] MEDS: ONDANSETRON 4MG ORAL DISINTEGRATING TAB PO ONE (10:13)
[2023-11-04 10:14] LABS: LDH LACTATE DEHYDROGENASE 141 U/L (120-246)
[2023-11-04 10:15] LABS: CREATININE,RANDOM URINE 87.7 MG/DL
[2023-11-04 10:15] LABS: ALT/SGPT 10 U/L (7.0-40); AST/SGOT < 8 U/L (<34); BILIRUBIN,TOTAL 0.3 MG/DL (0.3-1.2); CREATININE FOR GFR 0.38 MG/DL (0.55-1.30); GLOMERULAR FILTRATION RATE > 60.0 (>60)
[2023-11-04] MEDS: diphenhydrAMINE 25MG CAP PO ONE (11:09)
[2023-11-04] MEDS: FERRIC CARBOXYMALTOSE INJ 750 MG, VIAL MATE ADAPTER 1 EACH in NS 250 ML IV ONE (11:24)
[2023-11-04] MEDS ORDERED: ASPI81CH33 PO (12:31)
== END 2023-11-04 13:32 | disposition home or self-care (01) ==
LOC: M LDO 08:25
PROVIDERS: ATTEND Advanced Practice Midwife
DX: O99.012 Anemia complicating pregnancy, second trimester (principal); O26.892 Other specified pregnancy related conditions, second trimester; R03.0 Elevated blood-pressure reading, without diagnosis of hypertension; R51.0 Headache with orthostatic component, not elsewhere classified; Z3A.24 24 weeks gestation of pregnancy; Z87.59 Personal history of other complications of pregnancy, childbirth and the puerperium
CPT/HCPCS: 36415; 59025; 82247; 82570; 83615; 84156; 84450; 84460; 84550; 85027; 96365; G0463; J1439

== ENCOUNTER 2023-11-09 14:16 | Outpatient (CLI) | payer BC, MEDICAID ==
[~2023-11-09] VITALS: Ht 160 cm; Wt 95.8 kg
[~2023-11-09 14:16] MED LIST changes: +ACET-897 PO; +ASPI81CH33 PO
[2023-11-09] MEDS ORDERED: EXCETAB32 PO (14:37)
[2023-11-09 14:39] VITALS: BP 131/84; O2SAT 98
[2023-11-09] MEDS ORDERED: ACETAMINOPHEN 500 MG TAB PO ONE (15:00)
[2023-11-09 16:05] LABS: HEMATOCRIT 32.7 % (36.0-47.0); MEAN CORPUSCULAR HEMOGLOBIN 26.5 pg (27.0-33.0); MEAN CORPUSCULAR HGB CONC 30.6 g/dl (32.0-36.5); MEAN CORPUSCULAR VOLUME 86.5 fl (80.0-96.0); PLATELET COUNT, AUTOMATED 308 10^3/uL (150-450); RED BLOOD COUNT 3.78 10^6/uL (4.00-5.40); WHITE BLOOD COUNT 16.3 10^3/uL (4.0-10.0)
== END 2023-11-09 16:36 | disposition home or self-care (01) ==
LOC: M LDO 14:16
PROVIDERS: ATTEND Obstetrics & Gynecology
DX: O26.892 Other specified pregnancy related conditions, second trimester (principal); O99.012 Anemia complicating pregnancy, second trimester; O99.342 Other mental disorders complicating pregnancy, second trimester; R51.9 Headache, unspecified; D50.9 Iron deficiency anemia, unspecified; F32.1 Major depressive disorder, single episode, moderate; Z87.59 Personal history of other complications of pregnancy, childbirth and the puerperium; Z3A.25 25 weeks gestation of pregnancy
CPT/HCPCS: 36415; 59025; 85027; G0463

== ENCOUNTER → 2023-11-19 | Outpatient (CLI) | payer BC, MEDICAID ==
[~2023-11-19] MED LIST changes: +EXCETAB32 PO
[2023-11-19 12:53] LABS: HEMATOCRIT 37.8 % (36.0-47.0); HEMOGLOBIN 11.6 g/dl (12.0-15.5); MEAN CORPUSCULAR HEMOGLOBIN 27.4 pg (27.0-33.0); MEAN CORPUSCULAR HGB CONC 30.7 g/dl (32.0-36.5); MEAN CORPUSCULAR VOLUME 89.4 fl (80.0-96.0); PLATELET COUNT, AUTOMATED 249 10^3/uL (150-450); RED BLOOD COUNT 4.23 10^6/uL (4.00-5.40); WHITE BLOOD COUNT 14.1 10^3/uL (4.0-10.0)
[2023-11-19 15:11] LABS: GC DNA AMPLIFICATION NEGATIVE (NEGATIVE)
[2023-11-19 19:06] LABS: GLUCOSE CHALLENGE TEST 1 HOUR 136 MG/DL (LESS THAN 140)
[2023-11-19 19:36] LABS: HIV 1&2 SCREEN NEGATIVE (NEGATIVE)
[2023-11-19 19:43] LABS: HEPATITIS C VIRUS ABY INDEX < 0.02 INDEX (<0.8)
== END ==
LOC: M PLALAB 08:27
PROVIDERS: ATTEND Obstetrics & Gynecology
DX: Z34.92 Encounter for supervision of normal pregnancy, unspecified, second trimester (principal); Z3A.00 Weeks of gestation of pregnancy not specified

== ENCOUNTER → 2023-12-04 | Outpatient (CLI) | payer BC, MEDICAID ==
[~2023-12-04] MED LIST changes: +ADULKIT XX; +[UNRECOGNIZED DRUG - OTHER]
== END ==
LOC: M LAB 07:58
PROVIDERS: ATTEND Obstetrics & Gynecology
DX: O99.810 Abnormal glucose complicating pregnancy (principal); Z3A.00 Weeks of gestation of pregnancy not specified

== ENCOUNTER 2023-12-31 11:43 | Outpatient (CLI) | payer BC, MEDICAID ==
[~2023-12-31] VITALS: Ht 160 cm; Wt 102.9 kg
[2023-12-31 12:05] VITALS: BP 138/83
[2023-12-31] MEDS ORDERED: HOME MED LIST COMPLETE! XX SCH (12:05)
[2023-12-31 12:20] VITALS: BP 133/83
[2023-12-31 12:34] VITALS: BP 133/83
[2023-12-31] MEDS: diphenhydrAMINE 25MG CAP PO ONE (12:36)
[2023-12-31] MEDS: METOCLOPRAMIDE 10MG TAB PO ONE (12:36)
[2023-12-31 13:04] LABS: URIC ACID 3.4 MG/DL (3.1-7.8)
[2023-12-31 13:06] LABS: LDH LACTATE DEHYDROGENASE 163 U/L (120-246)
[2023-12-31 13:07] LABS: ALBUMIN 2.8 G/DL (3.2-5.2); ALKALINE PHOSPHATASE 110 U/L (46-116); ALT/SGPT 12 U/L (7.0-40); AST/SGOT 8 U/L (<34); BILIRUBIN,TOTAL 0.4 MG/DL (0.3-1.2); BLOOD UREA NITROGEN 5 MG/DL (9-23); CALCIUM LEVEL 9.4 MG/DL (8.5-10.1); CARBON DIOXIDE LEVEL 23 MMOL/L (20-31); CHLORIDE LEVEL 108 MMOL/L (98-107); CREATININE FOR GFR 0.39 MG/DL (0.55-1.30); GLOMERULAR FILTRATION RATE > 60.0 (>60); GLUCOSE, FASTING 73 MG/DL (60-100); POTASSIUM SERUM 3.9 MMOL/L (3.5-5.1); SODIUM LEVEL 137 MMOL/L (136-145); TOTAL PROTEIN 6.6 G/DL (5.7-8.2)
[2023-12-31 13:19] LABS: CREATININE,RANDOM URINE 35.7 MG/DL
[2023-12-31 13:26] LABS: TOTAL PROTEIN,RANDOM URINE < 6.0 MG/DL (0.0-14.0)
[2023-12-31 13:43] LABS: HEMATOCRIT 35.7 % (36.0-47.0); HEMOGLOBIN 11.3 g/dl (12.0-15.5); MEAN CORPUSCULAR HGB CONC 31.7 g/dl (32.0-36.5); MEAN CORPUSCULAR VOLUME 85.2 fl (80.0-96.0); PLATELET COUNT, AUTOMATED 301 10^3/uL (150-450); RED BLOOD COUNT 4.19 10^6/uL (4.00-5.40)
[2023-12-31 15:30] VITALS: BP 133/84
[2023-12-31] MEDS ORDERED: LR 1,000 ML IV ONE (15:35)
[2023-12-31 17:23] LABS: APPEARANCE, URINE HAZY (CLEAR); BACTERIA, URINE AUTO 2+ (NEGATIVE); BILIRUBIN, URINE AUTO NEGATIVE (NEGATIVE); BLOOD, URINE BLOOD NEGATIVE (NEGATIVE); COLOR, URINE YELLOW (YELLOW); GLUCOSE, URINE (UA) AUTO NEGATIVE (NEGATIVE); KETONE, URINE AUTO 1+ mg/dL (NEGATIVE); LEUKOCYTE ESTERASE, URINE AUTO TRACE (NEGATIVE); NITRITE, URINE AUTO NEGATIVE (NEGATIVE); PROTEIN, URINE AUTO NEGATIVE (NEGATIVE); RBC, URINE AUTO 1 /HPF (0-3); SPECIFIC GRAVITY URINE AUTO 1.009 (1.002-1.035); SQUAMOUS EPITHELIAL CELL UR AU 2 /HPF (0-6); UROBILINOGEN, URINE AUTO 0.2 mg/dL (0.0-2.0); WBC, URINE AUTO 3 /HPF (0-3)
[2023-12-31] MEDS: metroNIDAZOLE (FLAGYL) 500MG TABLET PO ONE (17:24)
[2023-12-31 17:27] VITALS: BP 124/81
[2023-12-31 23:11] LABS: GC DNA AMPLIFICATION NEGATIVE (NEGATIVE)
== END 2023-12-31 18:28 | disposition home or self-care (01) ==
LOC: M LDO 11:43
PROVIDERS: ATTEND Obstetrics & Gynecology
DX: O23.593 Infection of other part of genital tract in pregnancy, third trimester (principal); O26.893 Other specified pregnancy related conditions, third trimester; O99.343 Other mental disorders complicating pregnancy, third trimester; O99.513 Diseases of the respiratory system complicating pregnancy, third trimester; R51.0 Headache with orthostatic component, not elsewhere classified; F32.1 Major depressive disorder, single episode, moderate; F41.1 Generalized anxiety disorder; J45.909 Unspecified asthma, uncomplicated; Z87.59 Personal history of other complications of pregnancy, childbirth and the puerperium; Z3A.32 32 weeks gestation of pregnancy
CPT/HCPCS: 36415; 59025; 76815; 80053; 81001; 82247; 82570; 82731; 83615; 84156; 84450; 84460; 84550; 85027; 87081; 87086; 87810; 87850; G0463

== ENCOUNTER 2024-01-18 12:47 | Outpatient (CLI) | payer BC, MEDICAID ==
[2024-01-18] VITALS (7 sets, daily range): BP systolic 136–153; BP diastolic 79–93; O2SAT 98
[~2024-01-18] VITALS: Ht 165.1 cm; Wt 103.0 kg
[2024-01-18] MEDS: BETAMETHASONE SOLUSPAN 6MG/ML 5ML VIAL IM SCH (13:28)
[2024-01-18 13:39] LABS: HEMATOCRIT 35.7 % (36.0-47.0); HEMOGLOBIN 11.2 g/dl (12.0-15.5); MEAN CORPUSCULAR HEMOGLOBIN 26.4 pg (27.0-33.0); MEAN CORPUSCULAR HGB CONC 31.4 g/dl (32.0-36.5); PLATELET COUNT, AUTOMATED 321 10^3/uL (150-450); RED BLOOD COUNT 4.25 10^6/uL (4.00-5.40); WHITE BLOOD COUNT 13.7 10^3/uL (4.0-10.0)
[2024-01-18 13:54] LABS: TOTAL PROTEIN,RANDOM URINE 12.3 MG/DL (0.0-14.0)
[2024-01-18 13:56] LABS: URIC ACID 3.8 MG/DL (3.1-7.8)
[2024-01-18 13:58] LABS: LDH LACTATE DEHYDROGENASE 152 U/L (120-246)
[2024-01-18 13:59] LABS: CREATININE,RANDOM URINE 39.6 MG/DL
[2024-01-18 13:59] LABS: ALT/SGPT 11 U/L (7.0-40); AST/SGOT 8 U/L (<34); BILIRUBIN,TOTAL 0.3 MG/DL (0.3-1.2); CREATININE FOR GFR 0.35 MG/DL (0.55-1.30); GLOMERULAR FILTRATION RATE > 60.0 (>60)
== END 2024-01-18 15:40 | disposition home or self-care (01) ==
LOC: M LDO 12:47
PROVIDERS: ATTEND Advanced Practice Midwife
DX: O14.93 Unspecified pre-eclampsia, third trimester (principal); O99.343 Other mental disorders complicating pregnancy, third trimester; O99.513 Diseases of the respiratory system complicating pregnancy, third trimester; O99.283 Endocrine, nutritional and metabolic diseases complicating pregnancy, third trimester; O99.810 Abnormal glucose complicating pregnancy; O32.1XX9 Maternal care for breech presentation, other fetus; F32.A Depression, unspecified; J45.909 Unspecified asthma, uncomplicated; E28.2 Polycystic ovarian syndrome; Z3A.35 35 weeks gestation of pregnancy; Z87.891 Personal history of nicotine dependence
CPT/HCPCS: 36415; 59025; 76816; 76820; 82247; 82570; 83615; 84156; 84450; 84460; 84550; 85027; 96372; G0463; J0702

== ENCOUNTER 2024-01-19 13:11 | Outpatient (CLI) | payer BC, MEDICAID ==
[~2024-01-19] VITALS: Ht 160 cm; Wt 103.5 kg
[2024-01-19] MEDS: BETAMETHASONE SOLUSPAN 6MG/ML 5ML VIAL IM ONE (15:16)
[2024-01-19] MEDS ORDERED: HOME MED LIST COMPLETE! XX SCH (16:30)
== END 2024-01-19 15:35 | disposition home or self-care (01) ==
LOC: M LDO 13:11
PROVIDERS: ATTEND Specialist
DX: O13.3 Gestational [pregnancy-induced] hypertension without significant proteinuria, third trimester (principal); Z3A.35 35 weeks gestation of pregnancy; Z87.59 Personal history of other complications of pregnancy, childbirth and the puerperium
CPT/HCPCS: 59025; 96372; G0463; J0702

== ENCOUNTER 2024-01-25 13:34 | Inpatient (IN) | payer BC, MEDICAID ==
[2024-01-25] VITALS (12 sets, daily range): BP systolic 112–158; BP diastolic 66–96; TEMP 98.1; O2SAT 97–98
[~2024-01-25] VITALS: Ht 160 cm; Wt 103.9 kg
[2024-01-25] MEDS ORDERED: LIDOCAINE 1% MDV 20ML VIAL INFIL PRN (14:00)
[2024-01-25] MEDS ORDERED: CARBOPROST TROMETHAMINE 250 MCG/ML AMP IM PRN (14:00)
[2024-01-25] MEDS ORDERED: OXYTOCIN DRIP 30 UNITS in IV 1 EA IV PRN (14:00)
[2024-01-25] MEDS ORDERED: OXYTOCIN INJ 10UNITS/ML 1ML VIAL IM PRN (14:00)
[2024-01-25] MEDS ORDERED: TRANEXAMIC ACID INJection 1,000 MG in NS 100 ML IV PRN (14:00)
[2024-01-25 14:53] LABS: HEMATOCRIT 35.4 % (36.0-47.0); HEMOGLOBIN 11.2 g/dl (12.0-15.5); MEAN CORPUSCULAR HEMOGLOBIN 26.2 pg (27.0-33.0); MEAN CORPUSCULAR HGB CONC 31.6 g/dl (32.0-36.5); MEAN CORPUSCULAR VOLUME 82.7 fl (80.0-96.0); PLATELET COUNT, AUTOMATED 332 10^3/uL (150-450); RED BLOOD COUNT 4.28 10^6/uL (4.00-5.40); WHITE BLOOD COUNT 17.7 10^3/uL (4.0-10.0)
[2024-01-25 15:05] LABS: URIC ACID 4.4 MG/DL (3.1-7.8)
[2024-01-25 15:07] LABS: LDH LACTATE DEHYDROGENASE 156 U/L (120-246)
[2024-01-25 15:08] LABS: ALT/SGPT 12 U/L (7.0-40); AST/SGOT 10 U/L (<34); BILIRUBIN,TOTAL 0.3 MG/DL (0.3-1.2); CREATININE FOR GFR 0.39 MG/DL (0.55-1.30); GLOMERULAR FILTRATION RATE > 60.0 (>60)
[2024-01-25 15:30] LABS: CREATININE,RANDOM URINE 54.4 MG/DL
[2024-01-25 15:48] LABS: HEPATITIS C VIRUS ABY INDEX 0.03 INDEX (<0.8)
[2024-01-25] MEDS: LR 1,000 ML IV SCH ×3 (18:10→21:35)
[2024-01-25] MEDS: LACTATED RINGER'S 1000 ML IV ONE (18:16)
[2024-01-25] MEDS: BICITRA 30ML SOLN UDC PO ONE (19:32)
[2024-01-25] MEDS: ceFAZolin SOD 2 GM in IV 1 EA IV ONE (19:32)
[2024-01-25 20:34] LABS: CORD GAS HCO3 V 25.7 MMOL/L; CORD GAS O2 SAT V 73.2 %; CORD GAS PCO2 V 45.3 mmHg; CORD GAS PH V 7.371 UNITS; CORD GAS PO2 V 30.7 mmHg; CORD GAS SBC V 23.8 MMOL/L
[2024-01-25 20:36] LABS: CORD GAS ABE A -0.9; CORD GAS HCO3 A 26.9 MMOL/L; CORD GAS O2 SAT A 33.6 %; CORD GAS PCO2 A 57.1 mmHg; CORD GAS PH A 7.291 UNITS; CORD GAS PO2 A 16.8 mmHg; CORD GAS SBC A 22.1 MMOL/L; CORD GAS TCO2 A 28.7 MMOL/L
[2024-01-25] MEDS ORDERED: MORPHINE 4 MG/ML 1ML VIAL IV PRN (20:50)
[2024-01-25] MEDS ORDERED: SIMETHICONE 80MG CHEW TAB PO PRN (20:50)
[2024-01-25] MEDS ORDERED: RHOGAM 300MCG (1500IU) INJ IM SCH (20:50)
[2024-01-25] MEDS ORDERED: ACETAMINOPHEN 500 MG TAB PO PRN (20:50)
[2024-01-25] MEDS ORDERED: ONDANSETRON 4MG 2ML VIAL IV PRN ×2 (20:50→21:35)
[2024-01-25] MEDS ORDERED: ANUSOL HC CREAM 30GM TOP PRN (20:50)
[2024-01-25] MEDS ORDERED: OXYTOCIN 30UNITS IN 0.9% NaCl 500ML IV BAG As Ordered ONE (20:58)
[2024-01-25] MEDS ORDERED: COLA100C5 PO (21:00)
[2024-01-25] MEDS ORDERED: IBUP80TA PO (21:00)
[2024-01-25] MEDS: DOCUSATE SODIUM 100MG CAPSULE PO SCH (21:00)
[2024-01-25] MEDS ORDERED: PERCOCET PO (21:00)
[2024-01-25] MEDS: OXYTOCIN DRIP 30 UNITS in IV 1 EA IV SCH ×2 (21:03→22:04)
[2024-01-25] MEDS ORDERED: fentaNYL 100 MCG/2 ML INJECTION IV PRN (21:35)
[2024-01-25] MEDS: SLF 3 ML SYR IV SCH (21:35)
[2024-01-25] MEDS ORDERED: MEPERIDINE 25 MG/ML 1ML VIAL IV PRN (21:35)
[2024-01-25] MEDS ORDERED: **NOTE PATIENT COMMENT** MISC XX SCH (21:35)
[2024-01-25] MEDS ORDERED: NALOXONE INJ 0.4MG/1ML VIAL IV PRN ×2 (21:35)
[2024-01-25] MEDS ORDERED: oxyCODONE 5MG TAB PO PRN (21:35)
[2024-01-25] MEDS ORDERED: diphenhydrAMINE 50MG/ML VIAL As Ordered ONE (21:41)
[2024-01-25] MEDS: diphenhydrAMINE 50MG/ML VIAL IV PRN (21:43)
[2024-01-26] VITALS (7 sets, daily range): BP systolic 120–136; BP diastolic 60–82; O2SAT 97–99
[2024-01-26] MEDS: KETOROLAC 30 MG/ML 1ML VIAL IV SCH (02:08)
[2024-01-26] MEDS: METOCLOPRAMIDE INJ 10MG/2ML VIAL IV PRN (05:05)
[2024-01-26 06:31] LABS: HEMATOCRIT 30.7 % (36.0-47.0); HEMOGLOBIN 9.6 g/dl (12.0-15.5); MEAN CORPUSCULAR HEMOGLOBIN 26.1 pg (27.0-33.0); MEAN CORPUSCULAR HGB CONC 31.3 g/dl (32.0-36.5); MEAN CORPUSCULAR VOLUME 83.4 fl (80.0-96.0); PLATELET COUNT, AUTOMATED 257 10^3/uL (150-450); RED BLOOD COUNT 3.68 10^6/uL (4.00-5.40)
[2024-01-26] MEDS: PRENATAL VITAMINS CHEWABLE TABLET PO SCH (08:19)
[2024-01-26] MEDS: PERCOCET 5MG/325MG TAB PO PRN (18:54)
[2024-01-26] MEDS: CALCIUM CARBONATE 500 MG CHEW U/D PO PRN (23:14)
[2024-01-26] MEDS: IBUPROFEN 800 MG TAB PO SCH (23:14)
[2024-01-27 02:00] VITALS: BP 127/64; O2SAT 100
[2024-01-27] MEDS: PERCOCET 5MG/325MG TAB PO PRN (02:24)
[2024-01-27 06:00] VITALS: BP 134/79; O2SAT 99
[2024-01-27] MEDS ORDERED: MEASLES,MUMPS,RUBELLA VACCINE INJ (MMR-II) SC.IMMUN ONE (09:00)
[2024-01-27 10:00] VITALS: BP 133/82; O2SAT 99
[2024-01-27] MEDS ORDERED: FLUZONE VACCINE TRIVALENT PF(2024-25) 0.5ML SYRINGE IM.IMMUN ONE (11:00)
== END 2024-01-27 14:10 | disposition home or self-care (01) | DRG 540 ==
LOC: M LDI 13:34 → M OBS 23:13
PROVIDERS: ADMIT Advanced Practice Midwife; ATTEND Advanced Practice Midwife
PROC: 10D00Z1 Extraction of Products of Conception, Low, Open Approach (ICD-10-PCS; principal; 2024-01-25 19:30)
DX: O14.14 Severe pre-eclampsia complicating childbirth (principal); O32.1XX0 Maternal care for breech presentation, not applicable or unspecified; Z37.0 Single live birth; Z3A.36 36 weeks gestation of pregnancy

== ENCOUNTER → 2024-08-08 | Outpatient (REF) | payer OTHER ==
[~2024-08-08] MED LIST changes: +IBUP80TA PO; +PERCOCET PO
[2024-08-08 18:31] LABS: ALBUMIN 4.1 G/DL (3.2-5.2); ALKALINE PHOSPHATASE 74 U/L (35-104); ALT/SGPT 27 U/L (7.0-40); AST/SGOT 14 U/L (<34); BILIRUBIN,TOTAL 0.3 MG/DL (0.3-1.2); BLOOD UREA NITROGEN 12 MG/DL (9-23); C REACTIVE PROTEIN QUANTITATIV 0.71 MG/DL (<1.0); CALCIUM LEVEL 9.2 MG/DL (8.5-10.1); CARBON DIOXIDE LEVEL 24 MMOL/L (20-31); CHLORIDE LEVEL 106 MMOL/L (98-107); CREATININE FOR GFR 0.63 MG/DL (0.55-1.30); GLOMERULAR FILTRATION RATE > 90.0 (>60); GLUCOSE, FASTING 98 MG/DL (60-100); POTASSIUM SERUM 4.4 MMOL/L (3.5-5.1); RHEUMATOID FACTOR QUANT 3.9 IU/ML (<14); SODIUM LEVEL 139 MMOL/L (136-145); TOTAL PROTEIN 7.3 G/DL (5.7-8.2)
[2024-08-08 18:32] LABS: THYROID STIMULATING HORMONE 0.936 uIU/ML (0.55-4.78)
[2024-08-08 18:33] LABS: BASO # 0.1 10^3/uL (0.0-0.2); BASO % 0.9 % (0.0-1.0); EOS # 0.2 10^3/uL (0.0-0.5); EOS % 2.9 % (0.0-3.0); HEMATOCRIT 42.7 % (36.0-47.0); HEMOGLOBIN 13.4 g/dl (12.0-15.5); LYMPH # 2.6 10^3/uL (1.5-5.0); LYMPH % 32.3 % (24.0-44.0); MEAN CORPUSCULAR HEMOGLOBIN 29.1 pg (27.0-33.0); MEAN CORPUSCULAR HGB CONC 31.4 g/dl (32.0-36.5); MEAN CORPUSCULAR VOLUME 92.8 fl (80.0-96.0); MONO # 0.6 10^3/uL (0.0-0.8); MONO % 7.1 % (2.0-8.0); NEUTROPHILS # 4.6 10^3/uL (1.5-8.5); NEUTROPHILS % 56.6 % (36.0-66.0); PLATELET COUNT, AUTOMATED 292 10^3/uL (150-450); WHITE BLOOD COUNT 8.2 10^3/uL (4.0-10.0)
[2024-08-08 18:43] LABS: ERYTHROCYTE SEDIMENTATION RATE 30 mm/hr (0-20)
[2024-08-11 14:17] LABS: ANA PATTERN Nuclear, Speckled (NEGATIVE); ANA SCREEN, IFA POSITIVE (NEGATIVE); ANA TITER 1:40 titer (<1:40)
== END ==
LOC: M SFHCCAPE 07:47
PROVIDERS: ATTEND Physician Assistant Medical
DX: M25.50 Pain in unspecified joint (principal); M25.60 Stiffness of unspecified joint, not elsewhere classified

== ENCOUNTER → 2024-08-11 | Outpatient (CLI) | payer OTHER | LOC: M WUC 08:28 | PROVIDERS: ATTEND Physician Assistant Medical | DX: M25.551 Pain in right hip (principal) ==

== ENCOUNTER 2025-03-03 11:48 | Inpatient (IN) | payer OTHER ==
[2025-03-03] VITALS (7 sets, daily range): BP systolic 103–126; BP diastolic 58–67; TEMP 97.7–101.8; O2SAT 95–100
[~2025-03-03] VITALS: Ht 160 cm; Wt 74.1 kg
[2025-03-03] MEDS ORDERED: ARIP1TAB6 PO (11:58)
[2025-03-03] MEDS ORDERED: BUSP10TA79 PO (11:58)
[2025-03-03] MEDS ORDERED: HYDR50TA70 PO (11:58)
[2025-03-03] MEDS ORDERED: IBUP200T46 PO (11:58)
[2025-03-03 12:25] LABS: BASO # 0.1 10^3/uL (0.0-0.2); BASO % 0.3 % (0.0-1.0); EOS # 0.0 10^3/uL (0.0-0.5); EOS % 0.1 % (0.0-3.0); LYMPH # 1.3 10^3/uL (1.5-5.0); LYMPH % 7.2 % (24.0-44.0); MONO # 1.4 10^3/uL (0.0-0.8); MONO % 8.2 % (2.0-8.0); NEUTROPHILS # 14.8 10^3/uL (1.5-8.5); NEUTROPHILS % 83.8 % (36.0-66.0); PLATELET COUNT, AUTOMATED 317 10^3/uL (150-450)
[2025-03-03 12:33] LABS: KETONE, URINE AUTO RFX NEGATIVE (NEGATIVE); MUCUS, URINE RFX SMALL (NEGATIVE); RBC, URINE AUTO RFX 19 /HPF (0-3); SQUAM EPITHELIAL CELL UR AURFX 7 /HPF (0-6)
[2025-03-03 12:34] LABS: LEUKOCYTE ESTERASE UR AUTO RFX 2+ (NEGATIVE); NITRITE, URINE AUTO RFX POSITIVE (NEGATIVE); WBC, URINE AUTO RFX TNTC /HPF (0-3)
[2025-03-03 12:59] LABS: ALT/SGPT 23 U/L (7.0-40); AST/SGOT 11 U/L (<34); CALCIUM LEVEL 9.2 MG/DL (8.5-10.1); CARBON DIOXIDE LEVEL 28 MMOL/L (20-31); CHLORIDE LEVEL 98 MMOL/L (98-107); CREATININE FOR GFR 0.81 MG/DL (0.55-1.30); GLOMERULAR FILTRATION RATE > 90.0 (>60); POTASSIUM SERUM 3.8 MMOL/L (3.5-5.1); SODIUM LEVEL 137 MMOL/L (136-145)
[2025-03-03 13:02] LABS: HCG, SERUM QUALITATIVE NEGATIVE (NEGATIVE)
[2025-03-03] MEDS: ACETAMINOPHEN *IV* 1,000 MG in IV 1 EA IV ONE ×2 (13:37→18:02)
[2025-03-03] MEDS: NS (Normal Saline) 0.9% 1,000 ML IV ONE ×2 (13:37→15:30)
[2025-03-03 13:41] LABS: Trichomonas vaginalis (AMP) NOT DETECTED (NEGATIVE)
[2025-03-03] MEDS ORDERED: ISOVUE-370 76% 100 ML VIAL As Ordered ONE (13:44)
[2025-03-03 14:05] LABS: GC DNA AMPLIFICATION NEGATIVE (NEGATIVE)
[2025-03-03] MEDS ORDERED: HOME MED LIST COMPLETE! XX SCH (14:20)
[2025-03-03] MEDS: cefTRIAXone SOD 2 GM in DEXTROSE 5% (D5W) ADV/MINI-BAG 50 ML IV ONE (14:31)
[2025-03-03] MEDS: metroNIDAZOLE 500 MG in IV 1 EA IV SCH (18:03)
[2025-03-03] MEDS: NS (Normal Saline) 0.9% 1,000 ML IV SCH (20:55)
[2025-03-03] MEDS: MORPHINE 4 MG/ML 1 ML VIAL IV PRN (22:21)
[2025-03-03] MEDS: CEFEPIME HCL 2 GM in DEXTROSE 5% (D5W) ADV/MINI-BAG 50 ML IV SCH (22:21)
[2025-03-04] VITALS (13 sets, daily range): BP systolic 103–127; BP diastolic 55–73; TEMP 99.3–103.9; O2SAT 95–100
[2025-03-04] MEDS: ACETAMINOPHEN 325 MG TAB PO PRN ×2 (01:18→21:01)
[2025-03-04 04:26] LABS: PLATELET COUNT, AUTOMATED 235 10^3/uL (150-450)
[2025-03-04 04:57] LABS: CALCIUM LEVEL 7.9 MG/DL (8.5-10.1); CARBON DIOXIDE LEVEL 24 MMOL/L (20-31); CHLORIDE LEVEL 105 MMOL/L (98-107); CREATININE FOR GFR 0.70 MG/DL (0.55-1.30); GLOMERULAR FILTRATION RATE > 90.0 (>60); POTASSIUM SERUM 3.8 MMOL/L (3.5-5.1); SODIUM LEVEL 139 MMOL/L (136-145)
[2025-03-04] MEDS: ENOXAPARIN 40 MG/0.4 ML SYRINGE (J1650 PER 10MG) SC SCH (08:31)
[2025-03-04] MEDS: ONDANSETRON 4MG/2ML VIAL IV PRN (10:57)
[2025-03-04] MEDS: ACETAMINOPHEN *IV* 1,000 MG in IV 1 EA IV ONE (14:14)
[2025-03-05 03:28] VITALS: BP 126/60; TEMP 97.8; O2SAT 97
[2025-03-05 03:35] VITALS: BP 104/68; TEMP 97.6; O2SAT 98
[2025-03-05 04:24] VITALS: TEMP 98.2
[2025-03-05 05:31] LABS: PLATELET COUNT, AUTOMATED 220 10^3/uL (150-450)
[2025-03-05 05:54] LABS: CALCIUM LEVEL 8.3 MG/DL (8.5-10.1); CARBON DIOXIDE LEVEL 28 MMOL/L (20-31); CHLORIDE LEVEL 104 MMOL/L (98-107); CREATININE FOR GFR 0.58 MG/DL (0.55-1.30); GLOMERULAR FILTRATION RATE > 90.0 (>60); POTASSIUM SERUM 3.8 MMOL/L (3.5-5.1); SODIUM LEVEL 140 MMOL/L (136-145)
[2025-03-05] MEDS: MORPHINE 4 MG/ML 1 ML VIAL IV PRN (06:48)
[2025-03-05 08:52] VITALS: BP 102/63; TEMP 97.9; O2SAT 96
[2025-03-05] MEDS ORDERED: ACET32TAB PO (09:56)
[2025-03-05] MEDS ORDERED: CEFP200T PO (09:56)
[2025-03-05] MEDS ORDERED: ONDA-284 PO (09:56)
[2025-03-05 11:47] VITALS: BP 104/63; TEMP 97.6; O2SAT 96
[2025-03-05] MEDS ORDERED: BACT800T5 PO (12:25)
== END 2025-03-05 13:29 | disposition home or self-care (01) | DRG 720 ==
LOC: M ED 11:48 → M ED INP 15:25 → M PCU 17:18
PROVIDERS: ADMIT Student in an Organized Health Care Education/Training Program; ATTEND Student in an Organized Health Care Education/Training Program
DX: A41.9 Sepsis, unspecified organism (principal); N10 Acute pyelonephritis; N39.0 Urinary tract infection, site not specified; R11.2 Nausea with vomiting, unspecified; B96.20 Unspecified Escherichia coli [E. coli] as the cause of diseases classified elsewhere; F12.90 Cannabis use, unspecified, uncomplicated; F17.290 Nicotine dependence, other tobacco product, uncomplicated; Z79.899 Other long term (current) drug therapy

== ENCOUNTER → 2025-03-08 | Outpatient (REF) | payer OTHER ==
[~2025-03-08] MED LIST changes: +ACET32TAB PO; +ARIP1TAB6 PO; +BUSP10TA79 PO; +CEFP200T PO; +ERYT5OIN25 OD; +HYDR50TA70 PO; +IBUP200T46 PO; +ONDA-284 PO
[2025-03-11 14:23] LABS: HPV APTIMA Not Detected (Not Detected)
== END ==
LOC: M SFHCWAGY 10:43
PROVIDERS: ATTEND Advanced Practice Midwife
DX: Z12.4 Encounter for screening for malignant neoplasm of cervix (principal)

== ENCOUNTER 2025-03-10 13:42 | Emergency (ER) | payer OTHER ==
[~2025-03-10] VITALS: Ht 160 cm; Wt 73.1 kg
[~2025-03-10 13:42] MED LIST changes: -ERYT5OIN25 OD
[2025-03-10 14:29] LABS: BASO # 0.1 10^3/uL (0.0-0.2); BASO % 0.7 % (0.0-1.0); EOS # 0.1 10^3/uL (0.0-0.5); EOS % 0.7 % (0.0-3.0); LYMPH # 3.3 10^3/uL (1.5-5.0); LYMPH % 26.7 % (24.0-44.0); MONO # 0.8 10^3/uL (0.0-0.8); MONO % 6.4 % (2.0-8.0); NEUTROPHILS # 8.0 10^3/uL (1.5-8.5); NEUTROPHILS % 65.1 % (36.0-66.0); PLATELET COUNT, AUTOMATED 474 10^3/uL (150-450)
[2025-03-10 15:08] LABS: CPK CREATINE PHOSPHOKINASE 15 U/L (34-145); HCG, SERUM QUALITATIVE NEGATIVE (NEGATIVE)
[2025-03-10 15:09] LABS: CALCIUM LEVEL 9.7 MG/DL (8.5-10.1); CARBON DIOXIDE LEVEL 28 MMOL/L (20-31); CHLORIDE LEVEL 102 MMOL/L (98-107); CK-MB VALUE MASS < 1.0 NG/ML (<3.6); CREATININE FOR GFR 0.70 MG/DL (0.55-1.30); GLOMERULAR FILTRATION RATE > 90.0 (>60); MAGNESIUM LEVEL 2.2 MG/DL (1.8-2.4); POTASSIUM SERUM 4.8 MMOL/L (3.5-5.1); SODIUM LEVEL 141 MMOL/L (136-145)
[2025-03-10] MEDS: ERYTHROMYCIN OPHTH OINT OD ONE (18:50)
[2025-03-10 19:18] LABS: APPEARANCE, URINE HAZY (CLEAR); BACTERIA, URINE AUTO 1+ (NEGATIVE); BILIRUBIN, URINE AUTO NEGATIVE (NEGATIVE); BLOOD, URINE BLOOD NEGATIVE (NEGATIVE); GLUCOSE, URINE (UA) AUTO NEGATIVE (NEGATIVE); KETONE, URINE AUTO NEGATIVE (NEGATIVE); LEUKOCYTE ESTERASE, URINE AUTO 1+ (NEGATIVE); MUCUS, URINE SMALL (NEGATIVE); NITRITE, URINE AUTO NEGATIVE (NEGATIVE); PROTEIN, URINE AUTO NEGATIVE (NEGATIVE); RBC, URINE AUTO 3 /HPF (0-3); SPECIFIC GRAVITY URINE AUTO 1.019 (1.002-1.035); SQUAMOUS EPITHELIAL CELL UR AU 3 /HPF (0-6); UROBILINOGEN, URINE AUTO 0.2 mg/dL (0.0-2.0); WBC, URINE AUTO 5 /HPF (0-3)
[2025-03-10 19:58] VITALS: BP 115/69; TEMP 97.1; O2SAT 100
[2025-03-10] MEDS ORDERED: ERYT5OIN25 OD (20:10)
== END 2025-03-10 20:17 | disposition home or self-care (01) ==
LOC: M ED 13:42
DX: R55 Syncope and collapse (principal); H10.31 Unspecified acute conjunctivitis, right eye; E28.2 Polycystic ovarian syndrome; F41.9 Anxiety disorder, unspecified; F32.A Depression, unspecified; J45.909 Unspecified asthma, uncomplicated; Z87.442 Personal history of urinary calculi; Z79.1 Long term (current) use of non-steroidal anti-inflammatories (NSAID); Z79.899 Other long term (current) drug therapy; Z79.2 Long term (current) use of antibiotics